=== PATIENT | female | born 1945 | race Caucasian/White ===

== ENCOUNTER → 2016-06-19 | Outpatient (CLI) | payer MEDICARE, MEDICAID | END | disposition home or self-care (01) | LOC: GMA 17:51 | PROVIDERS: ATTEND Nurse Practitioner Acute Care | DX: N30.00 Acute cystitis without hematuria (principal) ==

== ENCOUNTER 2016-09-23 08:36 | Observation (INO) | payer MEDICARE, MEDICAID ==
[2016-09-23] MEDS ORDERED: ASPIRIN TABLET 325 MG TAB PO ONE (08:47)
[2016-09-23] MEDS ORDERED: ALUMINUM & MAGNESIUM HYDROXIDE 30 ML UD PO ONE (08:47)
[2016-09-23] MEDS ORDERED: HYDROcodone 5MG/APAP 325MG 1 EA TAB PO ONE (08:47)
--- NOTE | 2016-09-23 09:15 | RAD ---
Study: Single Frontal View of the Chest. Indication:chest ppain shortness of breath Comparison: December 10, 2013. Impression: Cardiomegaly without failure. Thoracic aorta tortuous. Lungs clear. Degenerative changes of the shoulders. Osteopenia. If this is a new finding, DEXA scan recommended as well as evaluation for possible osteoporosis treatment. Electronically signed by: Edgar Up MD 09/23/2016 9:15 AM CDT
[2016-09-23] MEDS ORDERED: IPRATROPIUM/ALBUTEROL 3 ML VIAL NEB ONE (09:49)
--- NOTE | 2016-09-23 09:58 | ED.PDOC ---
History of Present Illness - General Chief Complaint: Respiratory Problem Stated Complaint: chest pain,shortness of breath Time Seen by Provider: 09/23/16 08:45 Source: patient Exam Limitations: no limitations - History of Present Illness Initial Comments: The patient is a 71-year-old female presenting to the emergency room secondary to chest pain and shortness of breath. She was brought in by EMS. Oxygen saturations were 88% on room air upon their arrival at her house. She was showing a markedly increased work of breathing with significant respiratory distress. Albuterol nebulizer treatment was started showing some improvement by her arrival here. She does not normally have oxygen at home. She does not have any history of sleep apnea. She apparently has a history of pulmonary fibrosis and a questionable history of a PE in the distant past. She has a history of a stroke in the past. She sees Dr. Ian Lo. the patient does have some significant dementia but does not live alone. She is reporting some chest pain with taking big deep breaths and with movement. Her left anterior and lateral chest wall are sore to palpation. No obvious trauma. no fevers. No productive sputum. No increased shortness of breath with lying back. Timing/Duration: 1 week Severity: severe Improving Factors: immobilization Worsening Factors: movement Associated Symptoms: chest pain, malaise, shortness of breath Allergies/Adverse Reactions: Allergies NO KNOWN ALLERGY Allergy (Verified 03/15/13 15:39) Home Medications: Ambulatory Orders Albuterol Sulfate 0.083 % IN QID #0 03/16/13 Albuterol Sulfate [Proair Hfa] 108 mcg IN Q4-6H #0 03/16/13 DULoxetine HCL [Cymbalta] 30 mg PO BID #0 03/16/13 Levothyroxine Sodium [Synthroid] 0.15 mg PO 0700 #0 03/16/13 Meloxicam 7.5 mg PO DAILY #0 03/16/13 metFORMIN HCL [Glucophage] 500 mg PO DAILY #0 03/16/13 Albuterol Sulfate [Proair Hfa] 2 puff INH Q6H PRN 09/23/16 Amlodipine Besylate 2.5 mg PO DAILY 09/23/16 Aspirin [Aminta Low Dose] 81 mg PO DAILY 09/23/16 Cyanocobalamin [Vitamin B-12] 500 mcg PO DAILY 09/23/16 Lisinopril 20 mg PO DAILY 09/23/16 Montelukast Sodium 10 mg PO DAILY 09/23/16 Review of Systems - Review of Systems Constitutional: States: malaise EENTM: States: no symptoms reported Respiratory: States: short of breath, wheezing Cardiology: States: chest pain Gastrointestinal/Abdominal: States: no symptoms reported Genitourinary: States: no symptoms reported Musculoskeletal: States: no symptoms reported Skin: States: no symptoms reported Neurological: States: other - chronic changes from her previous stroke including dementia. Endocrine: States: no symptoms reported All other Systems: No Change from Baseline Past Medical History (General) - Patient Medical History Hx Seizures: No Hx Stroke: No Hx Asthma: Yes Hx of COPD: Yes Hx Cardiac Disorders: No Hx Congestive Heart Failure: Yes Hx Pacemaker: No Hx Hypertension: Yes Hx Diabetes: Yes MRSA Source:: Blood Surgical History: cholecystectomy - Vaccination History Hx Influenza Vaccination: Yes Hx Pneumococcal Vaccination: Yes - Social History Hx Tobacco Use: No Hx Alcohol Use: No Hx Substance Use: No Hx Physical Abuse: No Hx Emotional Abuse: No - Female History Patient : No Family Medical History - Family History Mother Family History: Unknown Physical Exam - Physical Exam General Appearance: Alert, Anxious, Obvious distress Eye Exam: bilateral normal - chronic changes only Ears, Nose, Throat: hearing grossly normal, normal ENT inspection, normal pharynx - poor dentition Neck: non-tender, full range of motion, supple, normal inspection Respiratory: respiratory distress, decreased breath sounds - severely, accessory muscle use, wheezing Cardiovascular/Chest: normal peripheral pulses, no edema, tachycardia - sinus Peripheral Pulses: radial,right: 2+, radial,left: 2+, dorsalis pedis,right: 2+, dorsalis pedis,left: 2+ Gastrointestinal/Abdominal: non tender, soft Rectal Exam: deferred Back Exam: normal inspection, no CVA tenderness, no vertebral tenderness Extremity: normal range of motion, non-tender, no pedal edema, no calf tenderness, normal capillary refill Neurologic: alert, other - the patient knows she is at the hospital and why she is here. She recognizes her friends. She has a little bit off on the date. Her recall of her medical problems and medications is very poor Skin Exam: normal color Comments: Vital Signs - 24 hr 09/23/16 09/23/16 08:49 09:18 Temperature 98.7 F Pulse Rate [ 97 H 97 H Left Brachial] Respiratory 24 Rate Blood Pressure 137/76 [Left Arm] O2 Sat by Pulse 94 L Oximetry Progress - Progress Progress: 09/23/16 10:03 the patient is a 71-year-old female presenting to emergency room secondary to chest pain and significant shortness of breath. The patient is hypoxic at baseline upon EMS arrival. She is responding fairly well to the nebulizer treatments. She does appear to be having a COPD or pulmonary fibrosis flare. The patient was given IV Solu-Medrol along with IV azithromycin and Rocephin. Blood cultures have been performed. She has not yet been able to give a sputum culture. The patient presented with significant respiratory distress and she has responded well to treatments. Due to her multiple medical conditions and significant frailty, the patient will be admitted overnight to make sure that she improved rather than deteriorates further. She also does not have oxygen at home which she would need now if she were to go home. - Results/Orders Results/Orders: Laboratory Tests 09/23/16 09/23/16 09/23/16 09:00 09:00 09:00 WBC 7.7 RBC 4.59 Hgb 13.8 Hct 42.0 MCV 91.6 MCH 30.2 MCHC 32.9 L RDW 12.7 Plt Count 284 MPV 7.9 Absolute Neuts (auto) 4.40 Absolute Lymphs (auto) 2.50 Absolute Monos (auto) 0.50 Absolute Eos (auto) 0.40 Absolute Basos (auto) 0.10 Neutrophils % 56.4 Lymphocytes % 31.9 Monocytes % 6.3 Eosinophils % 4.6 Basophils % 0.8 PT 10.8 INR 0.960 PTT (SP) 27.2 D-Dimer, Quantitative < 230 Sodium 140 Potassium 3.8 Chloride 104 Carbon Dioxide 30 Anion Gap 9.8 L BUN 14 Creatinine 0.84 BUN/Creatinine Ratio 16.7 Random Glucose 159 H Serum Osmolality 283.2 Calcium 9.4 Total Bilirubin 0.5 AST 14 ALT 12 Alkaline Phosphatase 111 Creatine Kinase 27 CK-MB (CK-2) 0.8 CK-MB (CK-2) % Not Reportable Troponin I < 0.02 B-Natriuretic Peptide 13.3 Serum Total Protein 7.4 Albumin 4.0 Globulin 3.4 Albumin/Globulin Ratio 1.2 blood culture is been performed. Chest x-ray shows no obvious pneumonia but there are definite that changes consistent with her pulmonary fibrosis. No obvious fluid overload. EKG shows normal sinus rhythm. QT and [place] intervals are within normal limits. Nonspecific T-wave abnormalities in V2 V3 and V4. This EKG is consistent with previous EKG from 2013. Departure - Departure Clinical Impression: Acute bronchospasm, Pulmonary fibrosis Disposition: Admit Patient Referrals: Hugh Lo MD [Primary Care Provider] - 1-2 Weeks Home Medications: Ambulatory Orders Albuterol Sulfate 0.083 % IN QID #0 03/16/13 Albuterol Sulfate [Proair Hfa] 108 mcg IN Q4-6H #0 03/16/13 DULoxetine HCL [Cymbalta] 30 mg PO BID #0 03/16/13 Levothyroxine Sodium [Synthroid] 0.15 mg PO 0700 #0 03/16/13 Meloxicam 7.5 mg PO DAILY #0 03/16/13 metFORMIN HCL [Glucophage] 500 mg PO DAILY #0 03/16/13 Albuterol Sulfate [Proair Hfa] 2 puff INH Q6H PRN 09/23/16 Amlodipine Besylate 2.5 mg PO DAILY 09/23/16 Aspirin [Aminta Low Dose] 81 mg PO DAILY 09/23/16 Cyanocobalamin [Vitamin B-12] 500 mcg PO DAILY 09/23/16 Lisinopril 20 mg PO DAILY 09/23/16 Montelukast Sodium 10 mg PO DAILY 09/23/16 Decision To Admit - Decistion To Admit Decision to Admit Reason: Medical Nature Decision to Admit Date: 09/23/16 Decision to Admit Time: 10:05
[2016-09-23] MEDS ORDERED: methylPREDNISolone SODIUM SUC 40 MG/ML VIAL IV ONE (09:59)
[2016-09-23] MEDS ORDERED: cefTRIAXone SODIUM 1 GM in SODIUM CHL 0.9% 50ML MIN-BAG+ 50 ML IVPB ONE (09:59)
[2016-09-23] MEDS ORDERED: AZITHROMYCIN IV 500 MG in SODIUM CHLORIDE 0.9% 250ML 250 ML IVPB ONE (09:59)
[2016-09-23] MEDS ORDERED: SODIUM CHL 0.9% 50ML MIN-BAG+ 50 ML IVPB ONE (10:10)
[2016-09-23] MEDS ORDERED: cefTRIAXone SODIUM 1 GM VIAL ONE (10:10)
--- NOTE | 2016-09-23 10:27 | HP ---
SUPERVISING PHYSICIAN: Hugh Lo M.D. CHIEF COMPLAINT: Chest pains with shortness of breath. HISTORY OF PRESENT ILLNESS: Ms. Edwards is a 71 year-old female patient that presented to the Emergency Room after she started experiencing chest pains and shortness of breath. She notes that she has been having the chest pains on and off for the last several days. She was brought in by the EMS. Initially on admission, oxygen saturations were noted to be 80% on room air at her house, according to paramedics. She was at that point showing increased work of breathing with some mild respiratory distress. She was then given albuterol nebulizer treatment and showed improvement once she arrive to the E. R. She does normally wear oxygen at home. She has a longstanding history of pulmonary fibrosis with a past history of deep venous thrombus with a questionable PE in the past. She noted that she had been having chest pains that occurred with deep breaths and movement noted to be on the left anterolateral chest wall and obviously sore on palpation. She denied any sputum and no increased shortness of breath when she was supine. In the Emergency Department, vital signs showed she was satting 92% on room air after breathing treatments with a temperature of 98.7, pulse 97. Laboratory studies showed a normal CBC. Coagulation studies showed to be within normal limits. Chemistries showed elevated glucose at 159, otherwise within normal limits. Chest x-ray was also performed and per radiology interpretation showed no obvious infiltrative process but consistent changes with pulmonary fibrosis, but no obvious fluid overload. EKG also showed a sinus rhythm with nonspecific T wave abnormalities noted to be in V2, V3 and V4 which was unchanged from previous EKG compared in 2014. Given the fact that Ms. Edwards had been experiencing chest pains and ongoing increasing shortness of breath with mild respiratory distress with sats in the low 80s on room air, the patient will now be placed in observation to monitor on telemetry and to further rule out any acute myocardial infarction, and aggressive pulmonary hygiene with Solu-Medrol and antibiotic initiation with some concerns of early pneumonia community acquired given the patient's significant pulmonary fibrosis. The patient was placed in Observation in stable condition. PAST MEDICAL HISTORY: 1. History of deep venous thrombosis. 2. Asthma. 3. Pulmonary fibrosis. 4. Osteoarthritis. 5. Spinal stenosis. 6. Degenerative disc disease of the cervical spine. 7. Depression and anxiety. 8. Type 2 diabetes mellitus. 9. Cerebrovascular accidents. 10. Hypothyroidism. 11. Hypertriglyceridemia. 12. Hypertension. PAST SURGICAL HISTORY: 1. Laparoscopic cholecystectomy in October 2011. 2. Hysterectomy and bilateral salpingo-oophorectomy with bladder biopsy by Dr. Grady in 2005. 3. Tonsillectomy. 4. Eye surgery for strabismus. HOME MEDICATIONS: 1. Hydrocodone 10/325 one tablet every 4 hours as needed for pain. 2. Xanax 1 mg twice daily. 3. Glucophage 500 mg daily. 4. Singulair 10 mg daily. 5. Meloxicam 7.5 mg daily. 6. Lisinopril 20 mg daily. 7. Synthroid 0.15 mg daily. 8. Cymbalta 30 mg twice daily. 9. Vitamin B12 supplement 500 mcg daily. 10. Low dose aspirin 81 mg daily. 11. Amlodipine 2.5 mg daily. 12. Albuterol inhaler as needed every 4 hours. 13. Albuterol sulfate nebulizer solution 0.083% inhaled q.i.d. ALLERGIES: NO KNOWN DRUG ALLERGIES. FAMILY HISTORY: Father from problems with coronary artery disease. He also had chronic obstructive pulmonary disease. Mother had type 2 diabetes. She has 1 sister with breast cancer and multiple family members with diabetes mellitus. SOCIAL HISTORY: The patient is retired and disabled. She currently lives with her sister. She is not . She has worked in a assisted previously. She denies ever smoking but does note that her was a chronic smoker. She denies any history of alcohol or illicit drug use. REVIEW OF SYSTEMS: CONSTITUTIONAL: General malaise but denies any fever or chills, weight gain or weight loss. HEENT: No visual disturbances, headaches, neck pain or stiffness. RESPIRATORY: As noted in the history of present illness, shortness of breath, nonproductive cough and some notable wheezing. CARDIOVASCULAR: As noted in the history of present illness, chest pain that is reproducible with deep inspiration and palpation of the chest wall. GASTROINTESTINAL: Denies any nausea, vomiting, diarrhea or constipation. GENITOURINARY: No dysuria, hematuria or polyuria. MUSCULOSKELETAL: Does have chronic left shoulder pain. NEUROLOGIC: Chronic changes from previous stroke to include worsening dementia. PHYSICAL EXAMINATION: VITAL SIGNS: Temperature 98.7, pulse 97, blood pressure 137/76, respirations 24 , initially satting 92% on room air, after breathing treatment on admission to the Medical/Surgical floor she was satting 98% on nasal cannula at rest. Heart rate was 70. Weight was 83.9 kg. HEENT: Tympanic membranes are clear bilaterally. Oropharynx is pink and moist without any lesions. Very poor dentition with notable strabismus. NECK: Supple without any pain. Normal range of motion. No jugular venous distention. CHEST: Mild respiratory distress with some accessory muscle use as noted with just very faint wheezing on admission to the Medical/Surgical floor with significant decreased breath sounds. CARDIOVASCULAR: Regular rate and rhythm. No appreciable murmurs, gallops, or rubs. ABDOMEN: Soft, non-tender. Positive bowel sounds and obese. EXTREMITIES: No clubbing, cyanosis or edema. NEUROLOGIC: She is alert and oriented with no focal deficit noted. LABORATORY: CBC on admission showed white count 7.7, the rest of the CBC was within normal limits. Coagulation studies showed normal PT, PTT and D-dimer. Chemistries showed normal electrolytes with potassium 3.8, BUN 14, creatinine 0.84, glucose 59. Liver functions showed to be within normal limits. She had 2 sets of cardiac enzymes prior to admission to the floor with both being less than 0.02 for troponin and CK and CK-MB were both within normal limits. TSH was slightly decreased to 0.26. Urinalysis showed 100 glucose with small amount of blood. Otherwise within normal limits. RADIOLOGY: Chest x-ray single view per radiology interpretation showed cardiomegaly without failure. Lungs appeared to be clear. ASSESSMENT: 1. Chest pain with need to rule out acute myocardial infarction with the patient notably having symptoms exacerbated by palpitation of the chest wall and deep inspiratory effort. 2. History of chronic obstructive pulmonary disease with advanced pulmonary fibrosis with an acute exacerbation with bronchospasms with concerns for early development of pneumonia, although the patient has a normal CBC. 3. Hypertension. 4. Hypothyroidism with a low TSH on supplementation needing outpatient management. 5. History of cerebrovascular accidents. 6. Type 2 diabetes mellitus on insulin and oral therapy. 7. Degenerative disc disease of the cervical spine with chronic pain. 8. History of deep venous thrombosis with remote history of possible PE. 9. Depression and anxiety. PLAN: The patient will be placed in Observation tonight for telemetry and close monitoring of serial cardiac enzymes to further rule out a possible acute myocardial infarction. She was started on Solu-Medrol in the Emergency Department. This will be continued with 30 mg every 6 hours times 3 doses low dose considering that the patient is diabetic. If she certainly fails to show clinical improvement, we will certainly increase this as needed. She will be provided with aggressive pulmonary hygiene including DuoNeb treatments q.i.d. and p.r.n. along with initiation of parenteral antibiotics to include Azithromycin and Rocephin with the patient being at risk with pneumonia community acquired given that she has advanced pulmonary fibrosis. Will plan to restart her medications once they have been updated and verified. Will start her on insulin sliding scale per protocol. She will be started on DVT prophylaxis as per protocol. Will start her on Protonix for gastric protection with the patient starting on corticosteroids. Will anticipate length of stay to be 1 to 2 days, possibly discharge tomorrow with repeat studies to include CBC, BMP and a repeat chest x-ray. She did have blood cultures drawn prior to initiation of antibiotics. Will try to collect a sputum if possible. Until discharge, will continue to monitor on telemetry with again repeat cardiac enzymes in the morning along with an EKG. Until then, treat appropriately and monitor closely. #[id number] [facility]
[2016-09-23] MEDS ORDERED: AZITHROMYCIN IV 500 MG VIAL IVPB ONE (10:35)
[2016-09-23] MEDS ORDERED: SODIUM CHLORIDE 0.9% 250ML 250 ML ONE (10:35)
[2016-09-23] MEDS ORDERED: MORPHINE SULFATE INJ 10 MG/ML VIAL IV PRN (10:52)
[2016-09-23] MEDS ORDERED: ASPIRIN (CHEWABLE) 81 MG TAB PO ONE (10:52)
[2016-09-23] MEDS ORDERED: NITROGLYCERIN 0.4 MG 25 EA TAB SL PRN (10:52)
[2016-09-23] MEDS ORDERED: IV SET AND CAP CHANGE INJ INJ SCH (11:00)
[2016-09-23] MEDS ORDERED: ALBUTEROL SULFATE 2.5 MG/3 ML VIAL NEB PRN (11:03)
[2016-09-23] MEDS ORDERED: ACETAMINOPHEN 325 MG TAB PO PRN (11:03)
[2016-09-23] MEDS ORDERED: GLUCAGON INJ 1 MG VIAL SUBCU PRN (11:03)
[2016-09-23] MEDS ORDERED: DEXTROSE 50% 25 GM/50 ML SYG IV PRN (11:03)
[2016-09-23] MEDS ORDERED: ONDANSETRON INJ 4 MG/2 ML VIAL IV PRN (11:03)
[2016-09-23] MEDS ORDERED: HYDROcodone 5MG/APAP 325MG 1 EA TAB PO PRN (11:03)
[2016-09-23] MEDS: INSULIN LISPRO 100 UNITS/ML PEN SUBCU SCH ×3 (11:30→21:41)
[2016-09-23] MEDS ORDERED: metFORMIN HCL 500 MG TAB PO SCH (16:30)
[2016-09-23] MEDS ORDERED: NON-FORMULARY MEDICATION 1 EA MIS (Lisinopril [Lisinopril] 20 MG) PO SCH (16:30)
[2016-09-23] MEDS ORDERED: LISINOPRIL 10 MG TAB ONE (17:14)
[2016-09-23] MEDS: ASPIRIN EC 81 MG TAB PO SCH (17:15)
[2016-09-23] MEDS: amLODIPine BESYLATE 5 MG TAB PO SCH (17:15)
[2016-09-23] MEDS: MELOXICAM 7.5 MG TAB PO SCH (17:17)
[2016-09-23] MEDS: methylPREDNISolone SODIUM SUC 40 MG/ML VIAL IV SCH ×2 (17:18→21:40)
[2016-09-23] MEDS: MONTELUKAST 10 MG TAB PO SCH (17:28)
[2016-09-23] MEDS: IPRATROPIUM/ALBUTEROL 3 ML VIAL INH SCH ×3 (17:30→20:38)
[2016-09-23] MEDS ORDERED: LISINOPRIL 10 MG TAB PO ONE (17:30)
--- NOTE | 2016-09-23 19:16 | PCM.CORE ---
Physician DVT/VTE - Nurse DVT Assessment & Total Each Risk Factor Represents 2 Points: Age 60-74 Each Risk Factor is 1 Point: Obesity (BMI >25), Serious Lung disease (pnemonia < 1month, COPD, emphysema,etc) DVT Assessment Score: 4 - 5 or more Very High Risk Treatments: Early Ambulation *, Sequential Compression Device Pharmacological: Enoxaparin 40mg SQ Daily
[2016-09-23] MEDS: HYDROcodone 10MG/APAP 325MG 1 EA TAB PO PRN (19:38)
[2016-09-23] MEDS ORDERED: ALPRAZolam 0.5 MG TAB ONE (20:04)
[2016-09-23] MEDS: DULoxetine HCL 30 MG CAP PO SCH (20:42)
[2016-09-23] MEDS ORDERED: NON-FORMULARY MEDICATION 1 EA MIS (Alprazolam [Xanax] 1 MG) PO SCH (21:00)
[2016-09-23] MEDS ORDERED: ENOXAPARIN SODIUM 40 MG/0.4 ML SYG SUBCU SCH (21:00)
[2016-09-23] MEDS: SODIUM CHLORIDE 0.9% (FLUSH) 10 ML SYG IV SCH (21:41)
[2016-09-24] MEDS: SODIUM CHLORIDE 0.9% (FLUSH) 10 ML SYG IV PRN ×3 (01:41→06:07)
[2016-09-24] MEDS: methylPREDNISolone SODIUM SUC 40 MG/ML VIAL IV SCH (03:07)
[2016-09-24] MEDS ORDERED: LEVOTHYROXINE SODIUM 0.075 MG TAB ONE (05:09)
[2016-09-24] MEDS ORDERED: PANTOPRAZOLE SODIUM IV 40 MG VIAL ONE (05:09)
[2016-09-24] MEDS ORDERED: PANTOPRAZOLE SODIUM IV 40 MG VIAL IV SCH (06:30)
--- NOTE | 2016-09-24 06:41 | RAD ---
Clinical History : Pneumonia , MAIN Exam : PA and lateral views of the chest 09/24/2016 7:00 AM CDT Comparisons : Portable AP view of the chest September 23, 2016 Findings : The lungs are clear without focal consolidation or pleural effusion. The heart is normal in size. The mediastinal contours are normal in appearance. There are vascular calcifications along the aortic arch. The patient is osteopenic which limits evaluation of the thoracic spine. The ribs and shoulders are grossly normal. Limited evaluation of the upper abdomen demonstrates no gross abnormalities. Impression: No acute cardiopulmonary disease Electronically signed by: Evan Villafuerte MD 09/24/2016 6:41 AM CDT
[2016-09-24] MEDS ORDERED: LEVOTHYROXINE SODIUM PO SCH (07:00)
[2016-09-24] MEDS ORDERED: LISINOPRIL 10 MG TAB ONE (07:26)
[2016-09-24] MEDS ORDERED: CYANOCOBALAMIN 1,000 MCG TAB ONE (07:26)
[2016-09-24] MEDS ORDERED: SODIUM CHLORIDE 0.9% 250ML 250 ML ONE (07:26)
[2016-09-24] MEDS ORDERED: SODIUM CHL 0.9% 50ML MIN-BAG+ 50 ML IVPB ONE (07:27)
[2016-09-24] MEDS ORDERED: ASPIRIN TABLET 325 MG TAB ONE (07:27)
[2016-09-24] MEDS ORDERED: cefTRIAXone SODIUM 1 GM VIAL ONE (07:27)
[2016-09-24] MEDS ORDERED: AZITHROMYCIN IV 500 MG VIAL IVPB ONE (07:28)
[2016-09-24] MEDS ORDERED: ALPRAZolam 0.5 MG TAB ONE (07:28)
[2016-09-24] MEDS: INSULIN LISPRO 100 UNITS/ML PEN SUBCU SCH ×3 (07:32→16:33)
[2016-09-24] MEDS: MONTELUKAST 10 MG TAB PO SCH (08:38)
[2016-09-24] MEDS: amLODIPine BESYLATE 5 MG TAB PO SCH (08:38)
[2016-09-24] MEDS: SODIUM CHLORIDE 0.9% (FLUSH) 10 ML SYG IV SCH (08:39)
[2016-09-24] MEDS: MELOXICAM 7.5 MG TAB PO SCH (08:39)
[2016-09-24] MEDS: DULoxetine HCL 30 MG CAP PO SCH (08:39)
[2016-09-24] MEDS ORDERED: LISINOPRIL 10 MG TAB PO SCH (09:00)
[2016-09-24] MEDS ORDERED: metFORMIN HCL 500 MG TAB PO SCH (09:00)
[2016-09-24] MEDS ORDERED: CYANOCOBALAMIN 1,000 MCG TAB PO SCH (09:00)
[2016-09-24] MEDS ORDERED: ASPIRIN TABLET 325 MG TAB PO SCH (09:00)
[2016-09-24] MEDS ORDERED: ALPRAZolam 0.5 MG TAB PO SCH (09:00)
[2016-09-24] MEDS: ASPIRIN EC 81 MG TAB PO SCH (09:13)
[2016-09-24] MEDS: IPRATROPIUM/ALBUTEROL 3 ML VIAL INH SCH ×3 (09:17→16:37)
[2016-09-24] MEDS ORDERED: AZITHROMYCIN IV 500 MG in SODIUM CHLORIDE 0.9% 250ML 250 ML IVPB SCH (10:00)
[2016-09-24] MEDS ORDERED: cefTRIAXone SODIUM 1 GM in SODIUM CHL 0.9% 50ML MIN-BAG+ 50 ML IVPB SCH (12:00)
[2016-09-24] MEDS: HYDROcodone 10MG/APAP 325MG 1 EA TAB PO PRN (13:12)
[2016-09-24 17:57] VITALS: BP 131/71; TEMP 97.7; O2SAT 100
[2016-09-25] MEDS ORDERED: LEVOTHYROXINE SODIUM 0.075 MG TAB PO SCH (06:30)
== END 2016-09-24 19:03 | disposition home or self-care (01) ==
LOC: ER 08:36 → MS 10:26
PROVIDERS: ADMIT Nurse Practitioner Family; ATTEND Nurse Practitioner Acute Care
DX: R07.89 Other chest pain (principal); J44.1 Chronic obstructive pulmonary disease with (acute) exacerbation; J84.10 Pulmonary fibrosis, unspecified; J18.9 Pneumonia, unspecified organism; R09.02 Hypoxemia; R06.02 Shortness of breath; I10 Essential (primary) hypertension; E03.9 Hypothyroidism, unspecified; E11.9 Type 2 diabetes mellitus without complications; M50.30 Other cervical disc degeneration, unspecified cervical region; G89.29 Other chronic pain; F32.9 Major depressive disorder, single episode, unspecified; F41.9 Anxiety disorder, unspecified; J45.909 Unspecified asthma, uncomplicated; M19.90 Unspecified osteoarthritis, unspecified site; E78.1 Pure hyperglyceridemia; M85.89 Other specified disorders of bone density and structure, multiple sites; I51.7 Cardiomegaly; Z99.81 Dependence on supplemental oxygen; Z79.1 Long term (current) use of non-steroidal anti-inflammatories (NSAID); Z79.84 Long term (current) use of oral hypoglycemic drugs; Z79.82 Long term (current) use of aspirin; Z79.899 Other long term (current) drug therapy; Z86.73 Personal history of transient ischemic attack (TIA), and cerebral infarction without residual deficits; Z86.718 Personal history of other venous thrombosis and embolism; Z90.49 Acquired absence of other specified parts of digestive tract; Z90.710 Acquired absence of both cervix and uterus; Z82.49 Family history of ischemic heart disease and other diseases of the circulatory system; Z82.5 Family history of asthma and other chronic lower respiratory diseases; Z83.3 Family history of diabetes mellitus; Z80.3 Family history of malignant neoplasm of breast
CPT/HCPCS: 36415 ×5; 36416 ×3; 71010; 71020; 80048; 80053; 80061; 81001; 82550 ×3; 82553 ×3; 82948 ×6; 83880; 84443; 84484 ×3; 85025 ×2; 85379; 85610; 85730; 87040 ×2; 93005; 94640 ×5; 94760 ×4; 96365; 96366; 96367; 96372 ×2; 96375 ×2; 96376 ×2; 99284; G0378; J0456 ×2; J0696 ×2; J1030 ×4; J1650; J1815; J2270; J7050 ×4; J7620 ×5

== ENCOUNTER → 2016-11-26 | Outpatient (CLI) | payer MEDICARE, MEDICAID | END | disposition home or self-care (01) | LOC: GMAM 12:04 | PROVIDERS: ATTEND Family Medicine | DX: E03.9 Hypothyroidism, unspecified (principal) ==

== ENCOUNTER → 2017-03-13 | Outpatient (CLI) | payer MEDICARE, MEDICAID | END | disposition home or self-care (01) | LOC: GMAM 10:27 | PROVIDERS: ATTEND Family Medicine | DX: E03.9 Hypothyroidism, unspecified (principal) ==

== ENCOUNTER → 2017-06-24 | Outpatient (CLI) | payer MEDICARE, MEDICAID | LOC: GMAM 11:40 | PROVIDERS: ATTEND Family Medicine | DX: E03.9 Hypothyroidism, unspecified (principal) ==

== ENCOUNTER 2017-07-31 11:05 | Emergency (ER) | payer MEDICARE, MEDICAID ==
--- NOTE | 2017-07-31 11:27 | ED.PDOC ---
History of Present Illness - General Chief Complaint: Respiratory Problem Stated Complaint: cough/wheezing Time Seen by Provider: 07/31/17 11:24 Source: patient Exam Limitations: no limitations - History of Present Illness Comments: Juan Pablo Edwards 72 y/o female with long standing history of asthma came to ER with cough and worsening wheezing for one week.No fever ,no chills,no hemoptysis with thick white phlegm. Timing/Duration: other - see hpi Cough Quality/Degree: productive cough Possible Cause: occasional episodes Improving Factors: nothing Worsening Factors: other - allergies Associated Symptoms: other - see hpi Respiratory Risk Factors: exposure to allergen Allergies/Adverse Reactions: Allergies NO KNOWN ALLERGY Allergy (Verified 07/31/17 11:35) Home Medications: Ambulatory Orders Albuterol Sulfate 0.083 % IN QID #0 03/16/13 Albuterol Sulfate [Proair Hfa] 108 mcg IN Q4-6H #0 03/16/13 DULoxetine HCL [Cymbalta] 30 mg PO BID #0 03/16/13 Meloxicam 7.5 mg PO DAILY #0 03/16/13 metFORMIN HCL [Glucophage] 500 mg PO DAILY #0 03/16/13 Alprazolam [Xanax] 1 mg PO BID 09/23/16 Amlodipine Besylate 2.5 mg PO DAILY 09/23/16 Aspirin [Aminta Low Dose] 81 mg PO DAILY 09/23/16 Cyanocobalamin [Vitamin B-12] 500 mcg PO DAILY 09/23/16 HYDROcodone 10MG/APAP 325MG [[place] 10/325] 1 tab PO Q4HR PRN 09/23/16 Lisinopril 20 mg PO DAILY 09/23/16 Montelukast Sodium 10 mg PO DAILY 09/23/16 Amoxicillin [Amoxil] 1,000 mg PO BID #30 cap 07/31/17 predniSONE 20 mg PO DAILY #7 tab 07/31/17 Review of Systems - Review of Systems Constitutional: States: no symptoms reported EENTM: States: no symptoms reported Respiratory: States: see HPI Cardiology: States: no symptoms reported Gastrointestinal/Abdominal: States: no symptoms reported Genitourinary: States: no symptoms reported All other Systems: Reviewed and Negative, No Change from Baseline Past Medical History (General) - Patient Medical History Hx Seizures: No Hx Stroke: No Hx Asthma: Yes Hx of COPD: Yes Hx Cardiac Disorders: No Hx Congestive Heart Failure: Yes Hx Pacemaker: No Hx Hypertension: Yes Hx Diabetes: Yes Hx MRSA: No MRSA Source:: Blood Surgical History: cholecystectomy, tonsillectomy, other - cataract,hysterectomy - Vaccination History Hx Influenza Vaccination: Yes Hx Pneumococcal Vaccination: Yes - Social History Hx Tobacco Use: No Hx Alcohol Use: No Hx Substance Use: No Hx Physical Abuse: No Hx Emotional Abuse: No - Activities of Daily Living Patient Lives Alone: No Grooming Ability: Independent Eating (Feeding) Ability: Independent Toileting Ability: Independent - Female History Patient : No Family Medical History - Family History Mother Family History: Unknown Hx Cardiac Disease: Yes - parents,sister Hx Family Diabetes: Yes - mom ,sister Hx Family Cancer: Yes - breast-sister Physical Exam - Physical Exam General Appearance: Alert, Comfortable, Frail Eye Exam: bilateral normal ENT Exam: hearing grossly normal Respiratory: chest non-tender, no respiratory distress, wheezing Cardiovascular/Chest: normal peripheral pulses, regular rate, rhythm, no murmur Gastrointestinal/Abdominal: non tender, soft, no organomegaly Extremity: no calf tenderness Neurologic: alert, oriented x 3 Skin Exam: normal color, warm/dry Progress - Progress Progress: 07/31/17 12:26 Vital Signs - 8 hr 07/31/17 11:19 Temperature 98.8 F Pulse Rate [ 92 H Left Radial] Respiratory 28 H Rate Blood Pressure 164/85 [Left Arm] O2 Sat by Pulse 94 L Oximetry - Results/Orders Results/Orders: Abnormal Lab Results 07/31/17 07/31/17 11:45 11:45 MCH 31.1 H MPV 7.3 L Anion Gap 10.5 L Random Glucose 129 H 07/31/17 13:04 Ipratropium/Albuterol [Duoneb] 3 ml NEB ONCE ONE SVN/Updraft Therapy .ONCE SVN/Updraft Therapy .PRN 08/01/17 09:00 [facility] Daily Laboratory Results - last 24 hr 07/31/17 07/31/17 11:45 11:45 WBC 8.9 RBC 4.46 Hgb 13.9 Hct 41.2 MCV 92.4 MCH 31.1 H MCHC 33.7 RDW 13.3 Plt Count 329 MPV 7.3 L Absolute Neuts (auto) 5.50 Absolute Lymphs (auto) 2.30 Absolute Monos (auto) 0.70 Absolute Eos (auto) 0.30 Absolute Basos (auto) 0.10 Neutrophils % 62.1 Lymphocytes % 25.6 Monocytes % 7.4 Eosinophils % 3.9 Basophils % 1.0 Sodium 139 Potassium 4.5 Chloride 105 Carbon Dioxide 28 Anion Gap 10.5 L BUN 12 Creatinine 0.68 BUN/Creatinine Ratio 17.6 Random Glucose 129 H Serum Osmolality 279.0 Calcium 9.2 - EKG/XRAY/CT XRAY: chest - no acute abnormality Departure - Departure Clinical Impression: Asthmatic bronchitis with exacerbation Qualifiers: Asthma severity: unspecified severity Qualified Code(s): J45.901 - Unspecified asthma with (acute) exacerbation Time of Disposition: 13:06 Disposition: Discharge to Home or Self Care Condition: Fair Departure Forms: ED Discharge - Pt. Copy, Patient Portal Self Enrollment Instructions: DI for Asthma -- Adult Referrals: Hugh Lo MD [Primary Care Provider] - 1-2 Weeks Prescriptions: Amoxicillin [Amoxil] 1,000 mg PO BID #30 cap predniSONE 20 mg PO DAILY #7 tab Home Medications: Ambulatory Orders Albuterol Sulfate 0.083 % IN QID #0 03/16/13 Albuterol Sulfate [Proair Hfa] 108 mcg IN Q4-6H #0 03/16/13 DULoxetine HCL [Cymbalta] 30 mg PO BID #0 03/16/13 Meloxicam 7.5 mg PO DAILY #0 03/16/13 metFORMIN HCL [Glucophage] 500 mg PO DAILY #0 03/16/13 Alprazolam [Xanax] 1 mg PO BID 09/23/16 Amlodipine Besylate 2.5 mg PO DAILY 09/23/16 Aspirin [Aminta Low Dose] 81 mg PO DAILY 09/23/16 Cyanocobalamin [Vitamin B-12] 500 mcg PO DAILY 09/23/16 HYDROcodone 10MG/APAP 325MG [[place] 10325] 1 tab PO Q4HR PRN 09/23/16 Lisinopril 20 mg PO DAILY 09/23/16 Montelukast Sodium 10 mg PO DAILY 09/23/16 Amoxicillin [Amoxil] 1,000 mg PO BID #30 cap 07/31/17 predniSONE 20 mg PO DAILY #7 tab 07/31/17 Additional Instructions: Continue with Albuterol MDI-2 puffs every 4-6 hours as needed for wheezing and the rest of medications ;Follow up with primary Md 03 August 2017 as needed
[2017-07-31] MEDS ORDERED: methylPREDNISolone SODIUM SUC 125 MG/2 ML VIAL IV ONE (11:31)
--- NOTE | 2017-07-31 11:47 | RAD ---
EXAM DESCRIPTION: Chest,1 View CLINICAL HISTORY: 72 years Female, wheezing COMPARISON: Sep 24 2016 TECHNIQUE: AP portable chest. FINDINGS: Fair expansion of the lungs is evident without consolidation, layering effusion, or large mass. Heart size and vascularity appear normal for AP technique and degree of inspiration. No gross bony, hilar, or mediastinal abnormalities are noted. IMPRESSION: Normal chest, one view Electronically signed by: Hugh Kaur MD 07/31/2017 11:47 AM CDT
[2017-07-31] MEDS ORDERED: IPRATROPIUM/ALBUTEROL 3 ML VIAL NEB ONE ×2 (12:28→13:04)
[2017-07-31 13:55] VITALS: BP 157/79; TEMP 98; O2SAT 100
== END 2017-07-31 13:56 | disposition home or self-care (01) ==
LOC: ER 11:05
DX: J45.901 Unspecified asthma with (acute) exacerbation (principal); J44.9 Chronic obstructive pulmonary disease, unspecified; I11.0 Hypertensive heart disease with heart failure; I50.9 Heart failure, unspecified; E11.9 Type 2 diabetes mellitus without complications; Z79.82 Long term (current) use of aspirin
CPT/HCPCS: 36416; 71045; 80048; 85025; 94640; J2930; J7620

== ENCOUNTER 2017-08-16 14:20 | Emergency (ER) | payer MEDICARE, MEDICAID ==
[2017-08-16] MEDS ORDERED: IPRATROPIUM/ALBUTEROL 3 ML VIAL NEB ONE ×3 (14:38→15:37)
--- NOTE | 2017-08-16 14:47 | RAD ---
EXAM DESCRIPTION: Chest,1 View CLINICAL HISTORY: cough, congestion, shortness of breath COMPARISON: July 31, 2017 FINDINGS: Cardiac silhouette is within normal limits. Aorta is tortuous. There is no focal parenchymal or pleural disease. Degenerative changes at both shoulders. Apices are partially obscured by superimposed soft tissues. IMPRESSION: No evidence of acute cardiopulmonary disease. Electronically signed by: Ryley Okeefe MD 08/16/2017 2:45 PM CDT
--- NOTE | 2017-08-16 15:02 | ED.PDOC ---
History of Present Illness - General Chief Complaint: Respiratory Problem Stated Complaint: Shortness of breath Time Seen by Provider: 08/16/17 14:51 Source: patient, Vital Signs reviewed Exam Limitations: no limitations - History of Present Illness Initial Comments: Juan Pablo Edwards 72 y/o female came to er with cough,sob,wheezing since yesterday.Stated has history of asthma and was recently seen here 2 weeks ago.Use inhalers for her asthma at home Timing/Duration: 24 hours Severity: moderate Improving Factors: nothing Worsening Factors: nothing Associated Symptoms: shortness of breath Allergies/Adverse Reactions: Allergies NO KNOWN ALLERGY Allergy (Verified 07/31/17 11:35) Home Medications: Ambulatory Orders Albuterol Sulfate 0.083 % IN QID #0 03/16/13 Albuterol Sulfate [Proair Hfa] 108 mcg IN Q4-6H #0 03/16/13 DULoxetine HCL [Cymbalta] 30 mg PO BID #0 03/16/13 Meloxicam 7.5 mg PO DAILY #0 03/16/13 metFORMIN HCL [Glucophage] 500 mg PO DAILY #0 03/16/13 Alprazolam [Xanax] 1 mg PO BID 09/23/16 Amlodipine Besylate 2.5 mg PO DAILY 09/23/16 Aspirin [Aminta Low Dose] 81 mg PO DAILY 09/23/16 Cyanocobalamin [Vitamin B-12] 500 mcg PO DAILY 09/23/16 HYDROcodone 10MG/APAP 325MG [[place] 10/325] 1 tab PO Q4HR PRN 09/23/16 Lisinopril 20 mg PO DAILY 09/23/16 Montelukast Sodium 10 mg PO DAILY 09/23/16 Amoxicillin [Amoxil] 1,000 mg PO BID #30 cap 07/31/17 predniSONE 20 mg PO DAILY #7 tab 07/31/17 Budesonide (Inhalation) [Pulmicort] 1 mg IN BID #120 ml 08/16/17 Cefuroxime Axetil [Ceftin] 500 mg PO Q12H #10 tablet 08/16/17 Ipratropium-Albuterol [Combivent Respimat 20-100 Mcg/Act] 2 puff IN Q6HRS #1 aer 08/16/17 Review of Systems - Review of Systems Constitutional: States: no symptoms reported EENTM: States: no symptoms reported Respiratory: States: see HPI Cardiology: States: no symptoms reported Gastrointestinal/Abdominal: States: no symptoms reported Genitourinary: States: no symptoms reported Musculoskeletal: States: no symptoms reported Skin: States: no symptoms reported Neurological: States: no symptoms reported All other Systems: Reviewed and Negative, No Change from Baseline Past Medical History (General) - Patient Medical History Hx Seizures: No Hx Stroke: No Hx Asthma: Yes Hx of COPD: Yes Hx Cardiac Disorders: No Hx Congestive Heart Failure: Yes Hx Pacemaker: No Hx Hypertension: Yes Hx Thyroid Disease: Yes - Is not taking her thyroid medication Hx Diabetes: Yes Hx MRSA: No MRSA Source:: Blood Surgical History: cholecystectomy, tonsillectomy, other - cataract,hysterectomy - Vaccination History Hx Influenza Vaccination: Yes Hx Pneumococcal Vaccination: Yes - Social History Hx Tobacco Use: No Hx Alcohol Use: No Hx Substance Use: No Hx Physical Abuse: No Hx Emotional Abuse: No - Activities of Daily Living Grooming Ability: Independent Eating (Feeding) Ability: Independent Toileting Ability: Independent - Female History Patient : No Family Medical History - Family History Mother Family History: Unknown Living Status: Hx Cardiac Disease: Yes - parents,sister Hx Family Diabetes: Yes - mom ,sister Hx Family Cancer: Yes - breast-sister Physical Exam - Physical Exam General Appearance: Alert, Comfortable, No apparent distress Eye Exam: bilateral normal Ears, Nose, Throat: hearing grossly normal, normal ENT inspection, normal pharynx Neck: non-tender, full range of motion, supple, normal inspection Respiratory: decreased breath sounds, wheezing Cardiovascular/Chest: regular rate, rhythm, no gallop, tachycardia Peripheral Pulses: radial,right: 2+, radial,left: 2+ Gastrointestinal/Abdominal: normal bowel sounds, non tender, soft, no organomegaly Extremity: non-tender, normal inspection, no calf tenderness Neurologic: alert, oriented x 3 Skin Exam: normal color, warm/dry Lymphatic: no adenopathy Progress - Progress Progress: 08/16/17 16:49 Vital Signs - 24 hr 08/16/17 08/16/17 08/16/17 14:27 14:49 16:29 Temperature 98.6 F Pulse Rate 127 H 114 H Pulse Rate [ 128 H Left Radial] Respiratory 32 H 20 20 Rate Blood Pressure 80/45 [Left Arm] O2 Sat by Pulse 92 L 94 L 96 Oximetry 08/16/17 16:50 BP -150/55;Sao2 95 %;HR 107 - Results/Orders Results/Orders: 08/16/17 15:03 IV Care:Saline Lock per Protoc QSHIFT 08/16/17 15:05 URINALYSIS Stat 08/17/17 09:[facility] Laboratory Results - last 24 hr 08/16/17 08/16/17 15:32 15:32 WBC 14.4 H RBC 4.55 Hgb 14.2 Hct 42.8 MCV 94.1 MCH 31.2 H MCHC 33.1 RDW 13.8 Plt Count 285 MPV 7.4 Absolute Neuts (auto) 12.80 H Absolute Lymphs (auto) 0.80 L Absolute Monos (auto) 0.60 Absolute Eos (auto) 0.10 Absolute Basos (auto) 0.10 Neutrophils % 88.9 H Lymphocytes % 5.7 L Monocytes % 4.3 Eosinophils % 0.6 L Basophils % 0.5 PT 11.1 INR 0.960 PTT (SP) 27.4 D-Dimer, Quantitative < 230 Sodium 141 Potassium 4.2 Chloride 107 Carbon Dioxide 28 Anion Gap 10.2 L BUN 13 Creatinine 0.70 BUN/Creatinine Ratio 18.6 Random Glucose 179 H Serum Osmolality 285.8 Calcium 8.9 Magnesium 1.9 Total Bilirubin 0.7 Direct Bilirubin < 0.1 Indirect Bilirubin 0.6 AST 19 ALT 23 Alkaline Phosphatase 65 Creatine Kinase 35 CK-MB (CK-2) 1.5 CK-MB (CK-2) % Not Reportable Troponin I < 0.02 B-Natriuretic Peptide 32.4 Serum Total Protein 7.2 Albumin 4.2 - EKG/XRAY/CT XRAY: chest - no acute abnormalities noted Departure - Departure Clinical Impression: Asthma exacerbation with COPD (chronic obstructive pulmonary disease) Time of Disposition: 19:01 Disposition: Discharge to Home or Self Care Condition: Fair Departure Forms: ED Discharge - Pt. Copy, Patient Portal Self Enrollment Referrals: Hugh Lo MD [Primary Care Provider] - 1-2 Weeks Prescriptions: Ipratropium-Albuterol [Combivent Respimat 20-100 Mcg/Act] 2 puff IN Q6HRS #1 aer Budesonide (Inhalation) [Pulmicort] 1 mg IN BID #120 ml Cefuroxime Axetil [Ceftin] 500 mg PO Q12H #10 tablet Home Medications: Ambulatory Orders Albuterol Sulfate 0.083 % IN QID #0 03/16/13 Albuterol Sulfate [Proair Hfa] 108 mcg IN Q4-6H #0 03/16/13 DULoxetine HCL [Cymbalta] 30 mg PO BID #0 03/16/13 Meloxicam 7.5 mg PO DAILY #0 03/16/13 metFORMIN HCL [Glucophage] 500 mg PO DAILY #0 03/16/13 Alprazolam [Xanax] 1 mg PO BID 09/23/16 Amlodipine Besylate 2.5 mg PO DAILY 09/23/16 Aspirin [Aminta Low Dose] 81 mg PO DAILY 09/23/16 Cyanocobalamin [Vitamin B-12] 500 mcg PO DAILY 09/23/16 HYDROcodone 10MG/APAP 325MG [[place] 10325] 1 tab PO Q4HR PRN 09/23/16 Lisinopril 20 mg PO DAILY 09/23/16 Montelukast Sodium 10 mg PO DAILY 09/23/16 Amoxicillin [Amoxil] 1,000 mg PO BID #30 cap 07/31/17 predniSONE 20 mg PO DAILY #7 tab 07/31/17 Budesonide (Inhalation) [Pulmicort] 1 mg IN BID #120 ml 08/16/17 Cefuroxime Axetil [Ceftin] 500 mg PO Q12H #10 tablet 08/16/17 Ipratropium-Albuterol [Combivent Respimat 20-100 Mcg/Act] 2 puff IN Q6HRS #1 aer 08/16/17 Additional Instructions: Continue with all home medications;Follow up with primary Md August 2017 Return to ER as needed
[2017-08-16] MEDS ORDERED: methylPREDNISolone SODIUM SUC 125 MG/2 ML VIAL IV ONE (15:03)
[2017-08-16] MEDS ORDERED: SODIUM CHLORIDE 0.9% 500ML 500 ML IVS ONE (15:03)
[2017-08-16] MEDS ORDERED: cefTRIAXone SODIUM 1 GM in SODIUM CHL 0.9% 50ML MIN-BAG+ 50 ML IVPB ONE (16:51)
[2017-08-16] MEDS ORDERED: LEVALBUTEROL NEBS 1.25 MG/3 ML VIAL NEB ONE (17:38)
[2017-08-16] MEDS ORDERED: cefTRIAXone SODIUM 1 GM VIAL ONE (17:53)
[2017-08-16] MEDS ORDERED: SODIUM CHL 0.9% 50ML MIN-BAG+ 50 ML IVPB ONE (17:53)
[2017-08-16 19:03] VITALS: O2SAT 92
[2017-08-16 19:17] VITALS: BP 137/86; TEMP 99
== END 2017-08-16 19:17 | disposition home or self-care (01) ==
LOC: ER 14:20
DX: J44.9 Chronic obstructive pulmonary disease, unspecified (principal); J45.901 Unspecified asthma with (acute) exacerbation; I10 Essential (primary) hypertension; E11.9 Type 2 diabetes mellitus without complications; E07.9 Disorder of thyroid, unspecified; Z79.82 Long term (current) use of aspirin
CPT/HCPCS: 36415; 71045; 80048; 80076; 81001; 82550; 82553; 83880; 84484; 85025; 85379; 85610; 85730; 94640; J0696; J2930; J7040; J7050; J7614; J7620

== ENCOUNTER 2017-08-21 12:00 | Inpatient (IN) | payer MEDICARE, MEDICAID ==
--- NOTE | 2017-08-21 12:27 | HP ---
SUPERVISING PHYSICIAN: Hugh Lo M.D. CHIEF COMPLAINT: Shortness of breath and coughing for about 1 week. HISTORY OF PRESENT ILLNESS: This is a 72 year-old female patient who has symptoms of an upper respiratory infection about 1 week ago. She actually had an appointment to see me in clinic due to her upper respiratory symptoms and for some reason was unable to make her appointment. She also came to the Emergency Room on 08/16/17 for shortness of breath, coughing and asthma symptoms. She was sent home with a new inhaler and she presented to her primary care physician's office this morning for continued asthma problems as well as some shortness of breath. In Dr. Lo's office, her oxygen saturations were 86, temperature 98.5 with blood pressure 114/80, pulse 90, respiratory rate 20. After being placed on oxygen, her O2 came up to 94%. Multiple breathing treatments were given in the office and she failed to improve. An x-ray was done at [facility] and showed a left lower lobe infiltrate, and I was called for direct admission to the hospital for left lower lobe pneumonia and exacerbation of asthma with low oxygen saturations. PAST MEDICAL HISTORY: 1. Asthma. 2. Hypothyroidism. 3. Cerebrovascular accident. 4. Cervical spine stenosis. 5. Degenerative disc disease. 6. Depression with anxiety. 7. Diabetes mellitus type 2. 8. Obstructive sleep apnea. 9. Pulmonary fibrosis. 10. Osteoporosis. PAST SURGICAL HISTORY: 1. Cholecystectomy. 2. Hysterectomy and bilateral salpingo-oophorectomy with bladder biopsy in 2005. 3. Tonsillectomy. 4. Eye surgery for strabismus. OUTPATIENT MEDICATIONS: Per the EMR and awaiting verification. ALLERGIES: NO KNOWN DRUG ALLERGIES. FAMILY HISTORY: Positive for coronary artery disease, type 2 diabetes, hypertension, breast cancer and rheumatoid arthritis. SOCIAL HISTORY: She is disabled. She is single. She lives with her sister. She denies any tobacco, ETOH or illicit drug use. REVIEW OF SYSTEMS: Positive for fatigue. Negative for chills, fever or weight changes. HEENT: Negative for sinus symptoms, ear pain, vision changes or sore throat. RESPIRATORY: Positive for persistent cough with copious amounts of clear to yellow sputum, shortness of breath and wheezing. CARDIOVASCULAR: Negative for chest pain, palpitations or tachycardia. GASTROINTESTINAL: Negative for constipation, diarrhea, nausea or vomiting. MUSCULOSKELETAL: Negative for arthralgias or myalgias. GENITOURINARY: Negative for hematuria, dysuria, polyuria. INTEGUMENT: Negative for lesions or rashes. NEUROLOGIC: Positive for mild headaches most likely due to coughing and weakness. Negative for seizures. PHYSICAL EXAMINATION: VITAL SIGNS: She is afebrile, heart rate 72, blood pressure 137/86, respiratory rate 22, O2 sat is 92% on 2 liters nasal cannula. GENERAL: This is a 72 year-old female patient who is lying in her hospital bed asleep. She awakens easily. She is in no acute distress. HEENT: Normocephalic and atraumatic. Pupils are equal and reactive. Oropharynx is clear. RESPIRATORY: Expiratory wheezing throughout all lung walsh, somewhat diminished at the bases. She is slightly tachypneic with a respiratory rate 22 to 24 breaths per minute. CARDIOVASCULAR: Regular rate and rhythm. GASTROINTESTINAL: Abdomen is soft, nondistended, non-tender. Bowel sounds are positive. EXTREMITIES: No cyanosis, clubbing or edema. NEUROLOGIC: She is awake, alert and oriented times three. LABORATORY: WBCs 6.7, hemoglobin 12.4, hematocrit 37.6. Electrolytes are basically within normal limits. Glucose 131, serum osmolality 272.7, calcium 8.3, serum total protein 6. Urinalysis is basically within normal limits. RADIOLOGY: Chest x-ray at [facility] shows a small left lower lobe infiltrate. All other labs and films have been reviewed via the EMR. ASSESSMENT: 1. Left lower lobe pneumonia failed outpatient therapy with O2 saturations of 86%. 2. History of asthma with an acute exacerbation. 3. Hypertension. 4. Diabetes mellitus type 2. 5. Obstructive sleep apnea. 6. History of cerebrovascular accident. 7. Depression with severe anxiety. PLAN: We will admit the patient to the hospital. I have initiated the pneumonia protocol and she will be started on azithromycin and Rocephin. I have also given her some steroids an will taper those IV steroids down as tolerated. I have started her on Accu-Cheks with a.c. and h.s. plus Humalog insulin sliding scale. I have given her a PPI for ulcer prophylaxis and Lovenox for DVT prophylaxis. As per Dr. Lo's request, we have started her on Breo and we will start that tomorrow morning. She will have aggressive pulmonary hygiene. I have restarted her home medications, including her scheduled Xanax and I have also given her some p.r.n. Xanax. We will continue to monitor her closely and follow as needed. Dr. Lo is the collaborating physician available for consultation. #[id number] [facility]
[2017-08-21] MEDS: IV SET AND CAP CHANGE INJ INJ SCH (12:30)
[2017-08-21] MEDS ORDERED: ALPRAZolam 0.25 MG TAB PO ONE (12:42)
[2017-08-21] MEDS ORDERED: ALPRAZolam 0.5 MG TAB ONE ×3 (12:52→21:00)
[2017-08-21] MEDS ORDERED: SODIUM CHLORIDE 0.9% (FLUSH) 10 ML SYG IV PRN (12:59)
[2017-08-21] MEDS ORDERED: ALBUTEROL SULFATE 2.5 MG/3 ML VIAL NEB PRN (13:01)
[2017-08-21] MEDS ORDERED: ACETAMINOPHEN 325 MG TAB PO PRN (13:01)
[2017-08-21] MEDS ORDERED: methylPREDNISolone SODIUM SUC 125 MG/2 ML VIAL IV ONE (13:05)
[2017-08-21] MEDS ORDERED: PANTOPRAZOLE SODIUM IV 40 MG VIAL IV SCH ×2 (13:30→18:30)
[2017-08-21] MEDS ORDERED: ENOXAPARIN SODIUM 40 MG/0.4 ML SYG SUBCU SCH (13:30)
[2017-08-21] MEDS: ALBUTEROL SULFATE 2.5 MG/3 ML VIAL NEB SCH ×3 (13:45→20:24)
[2017-08-21] MEDS ORDERED: SODIUM CHL 0.9% 50ML MIN-BAG+ 50 ML IVPB ONE (13:54)
[2017-08-21] MEDS ORDERED: AZITHROMYCIN IV 500 MG VIAL IVPB ONE (13:55)
[2017-08-21] MEDS ORDERED: ceFAZolin SODIUM 1 GM VIAL ONE (13:55)
[2017-08-21] MEDS ORDERED: SODIUM CHLORIDE 0.9% 250ML 250 ML ONE (13:56)
[2017-08-21] MEDS: guaiFENesin ER TAB 600 MG TAB PO SCH ×2 (14:03→20:30)
[2017-08-21] MEDS ORDERED: cefTRIAXone SODIUM 1 GM VIAL ONE (14:52)
[2017-08-21] MEDS: cefTRIAXone SODIUM 1 GM in SODIUM CHL 0.9% 50ML MIN-BAG+ 50 ML IVPB SCH (15:07)
[2017-08-21] MEDS: AZITHROMYCIN IV 500 MG in SODIUM CHLORIDE 0.9% 250ML 250 ML IVPB SCH (15:39)
[2017-08-21] MEDS ORDERED: DEXTROSE 50% 25 GM/50 ML SYG IV PRN (18:09)
[2017-08-21] MEDS ORDERED: GLUCAGON INJ 1 MG VIAL SUBCU PRN (18:09)
[2017-08-21] MEDS ORDERED: ALPRAZolam 0.5 MG TAB PO PRN (18:26)
[2017-08-21] MEDS: ENOXAPARIN SODIUM 40 MG/0.4 ML SYG SUBCU SCH ×2 (18:54→18:58)
[2017-08-21] MEDS ORDERED: DULoxetine HCL 20 MG CAP PO ONE (20:25)
[2017-08-21] MEDS ORDERED: PANTOPRAZOLE SODIUM TAB 40 MG PO ONE (20:26)
[2017-08-21] MEDS ORDERED: methylPREDNISolone SODIUM SUC 125 MG/2 ML VIAL ONE (20:26)
[2017-08-21] MEDS: DULoxetine HCL 30 MG CAP PO SCH (20:29)
[2017-08-21] MEDS: SODIUM CHLORIDE 0.9% (FLUSH) 10 ML SYG IV SCH (20:30)
[2017-08-21] MEDS ORDERED: NON-FORMULARY MEDICATION 1 EA MIS (Alprazolam [Xanax] 1 MG) PO SCH (21:00)
[2017-08-21] MEDS: INSULIN LISPRO 100 UNITS/ML PEN SUBCU SCH (22:17)
[2017-08-22] MEDS: methylPREDNISolone SODIUM SUC 125 MG/2 ML VIAL IV SCH ×3 (00:30→12:02)
[2017-08-22] MEDS: PANTOPRAZOLE SODIUM TAB 40 MG PO SCH (05:56)
--- NOTE | 2017-08-22 06:26 | RAD ---
EXAM: PA and LATERAL CHEST RADIOGRAPHS CLINICAL INDICATION: Pneumonia. COMPARISON: Chest radiographs of the first 2018. FINDINGS: Cardiac size and. Pulmonary vasculature are normal. New subtle bibasilar consolidations. Increased pulmonary markings in the mid and lower lung zones. Suspect new small bilateral pleural effusions. No pneumothorax. Unchanged degenerative disease in both shoulders and in the visualized spine. IMPRESSION: Findings suspicious for new right basilar pulmonary congestion. No superimposed focal pneumonia or pneumothorax. Electronically signed by: Bernardino Hunter MD 08/22/2017 6:24 AM CDT
[2017-08-22] MEDS: INSULIN LISPRO 100 UNITS/ML PEN SUBCU SCH ×4 (08:21→21:20)
[2017-08-22] MEDS: ALBUTEROL SULFATE 2.5 MG/3 ML VIAL NEB SCH ×4 (08:37→20:55)
[2017-08-22] MEDS: NON-FORMULARY MEDICATION 1 EA MIS (Fluticasone Furoate-Vilanterol [Breo Ellipta 100-25 Mcg IN SCH (08:42)
[2017-08-22] MEDS: DULoxetine HCL 30 MG CAP PO SCH (09:00)
[2017-08-22] MEDS: guaiFENesin ER TAB 600 MG TAB PO SCH ×2 (09:37→21:20)
[2017-08-22] MEDS: ALPRAZolam 0.5 MG TAB PO SCH ×2 (09:38→21:21)
[2017-08-22] MEDS: MONTELUKAST 10 MG TAB PO SCH (09:38)
[2017-08-22] MEDS: amLODIPine BESYLATE 5 MG TAB PO SCH (09:38)
[2017-08-22] MEDS: LISINOPRIL 10 MG TAB PO SCH (09:38)
[2017-08-22] MEDS: metFORMIN HCL 500 MG TAB PO SCH (09:38)
[2017-08-22] MEDS: MELOXICAM 7.5 MG TAB PO SCH (09:38)
[2017-08-22] MEDS: ENOXAPARIN SODIUM 40 MG/0.4 ML SYG SUBCU SCH (09:38)
[2017-08-22] MEDS: ASPIRIN EC 81 MG TAB PO SCH (09:38)
[2017-08-22] MEDS: SODIUM CHLORIDE 0.9% (FLUSH) 10 ML SYG IV SCH ×2 (09:51→21:21)
[2017-08-22] MEDS: DULoxetine HCL 20 MG CAP PO SCH ×2 (11:19→21:20)
[2017-08-22] MEDS ORDERED: SODIUM CHL 0.9% 50ML MIN-BAG+ 50 ML IVPB ONE (13:55)
[2017-08-22] MEDS ORDERED: cefTRIAXone SODIUM 1 GM VIAL ONE (13:55)
[2017-08-22] MEDS: KCL 20MEQ/0.45% NS 1,000 ML IVS PRN (14:05)
[2017-08-22] MEDS: cefTRIAXone SODIUM 1 GM in SODIUM CHL 0.9% 50ML MIN-BAG+ 50 ML IVPB SCH (14:06)
[2017-08-22] MEDS ORDERED: SODIUM CHLORIDE 0.9% 250ML 250 ML ONE ×2 (14:35→14:37)
[2017-08-22] MEDS ORDERED: AZITHROMYCIN IV 500 MG VIAL IVPB ONE (14:35)
[2017-08-22] MEDS: AZITHROMYCIN IV 500 MG in SODIUM CHLORIDE 0.9% 250ML 250 ML IVPB SCH (14:42)
--- NOTE | 2017-08-22 15:01 | PN ---
DATE: 08/22/17 SUPERVISING PHYSICIAN: Chance Egan M.D. SUBJECTIVE: The patient is lying in bed. She is asleep. She awakens easily. Complains of some shortness of breath and productive cough. She does feel slightly better than yesterday, but still is very weak. OBJECTIVE: VITAL SIGNS: Temperature 98, heart rate 109, blood pressure 171/95, respiratory rate 18, O2 sat is 97% on room air. RESPIRATORY: Scattered rhonchi throughout all lung walsh. Breath sounds are diminished at the bases. CARDIAC : Regular rate and rhythm. GASTROINTESTINAL: Abdomen is soft, nondistended, non -tender. Bowel sounds are positive. NEUROLOGIC: She is awake, alert and oriented times three. LABORATORY: WBCs are 4.1 with hemoglobin 13.3, hematocrit 40.5. Blood sugars have run between 210 and 247. Sodium 139, potassium 4.5, chloride 106, carbon dioxide 26, BUN 17, creatinine 0.79. Preliminary blood cultures are negative to date. RADIOLOGY: Chest x-ray per radiology interpretation shows a suspicious new right basilar pulmonary congestion. There is no superimposed focal pneumonia or pneumothorax. All other labs and films have been reviewed via the EMR. ASSESSMENT: 1. Bilateral lower lobe pneumonia failed outpatient therapy most likely community acquired. Prior to admission her O2 saturations were 86% at her physician 's office. 2. History of asthma with an acute exacerbation. 3. Hypertension. 4. Diabetes mellitus type 2. 5. Obstructive sleep apnea. 6. History of cerebrovascular accident. 7. Depression with severe anxiety. PLAN: We will continue present supportive care. I am titrating down her IV steroids. She will continue on her antibiotic as previously ordered. Will monitor her cultures. We were unable to obtain a sputum culture but will monitor her clinically. I will hold on lab and x-rays tomorrow. We will continue to encourage good pulmonary hygiene and followup as needed. Dr. Egan is the collaborating physician available for consultation. #[id number] [facility]
[2017-08-22] MEDS ORDERED: methylPREDNISolone SODIUM SUC 40 MG/ML VIAL ONE (19:57)
[2017-08-22] MEDS ORDERED: PANTOPRAZOLE SODIUM IV 40 MG VIAL IV SCH (21:00)
[2017-08-22] MEDS: HYDROcodone 10MG/APAP 325MG 1 EA TAB PO PRN (21:20)
[2017-08-22] MEDS: methylPREDNISolone SODIUM SUC 40 MG/ML VIAL IV SCH (21:25)
[2017-08-23] MEDS: KCL 20MEQ/0.45% NS 1,000 ML IVS PRN (05:34)
[2017-08-23] MEDS: methylPREDNISolone SODIUM SUC 40 MG/ML VIAL IV SCH (05:38)
[2017-08-23] MEDS: PANTOPRAZOLE SODIUM TAB 40 MG PO SCH (06:26)
[2017-08-23] MEDS: INSULIN LISPRO 100 UNITS/ML PEN SUBCU SCH ×4 (07:59→21:07)
[2017-08-23] MEDS: metFORMIN HCL 500 MG TAB PO SCH (08:02)
[2017-08-23] MEDS: NON-FORMULARY MEDICATION 1 EA MIS (Fluticasone Furoate-Vilanterol [Breo Ellipta 100-25 Mcg IN SCH (08:38)
[2017-08-23] MEDS: ALBUTEROL SULFATE 2.5 MG/3 ML VIAL NEB SCH ×4 (08:38→20:15)
[2017-08-23] MEDS: MONTELUKAST 10 MG TAB PO SCH (08:46)
[2017-08-23] MEDS: guaiFENesin ER TAB 600 MG TAB PO SCH ×2 (08:46→21:06)
[2017-08-23] MEDS: DULoxetine HCL 20 MG CAP PO SCH ×2 (08:46→21:06)
[2017-08-23] MEDS: LISINOPRIL 10 MG TAB PO SCH (08:46)
[2017-08-23] MEDS: ASPIRIN EC 81 MG TAB PO SCH (08:46)
[2017-08-23] MEDS: amLODIPine BESYLATE 5 MG TAB PO SCH (08:46)
[2017-08-23] MEDS: ALPRAZolam 0.5 MG TAB PO SCH ×2 (08:46→21:07)
[2017-08-23] MEDS: MELOXICAM 7.5 MG TAB PO SCH (08:46)
[2017-08-23] MEDS: SODIUM CHLORIDE 0.9% (FLUSH) 10 ML SYG IV SCH ×2 (08:47→21:13)
[2017-08-23] MEDS: ENOXAPARIN SODIUM 40 MG/0.4 ML SYG SUBCU SCH (08:47)
[2017-08-23] MEDS ORDERED: amLODIPine BESYLATE 5 MG TAB PO SCH (12:06)
[2017-08-23] MEDS ORDERED: amLODIPine BESYLATE 5 MG TAB PO ONE (12:07)
[2017-08-23] MEDS ORDERED: SODIUM CHL 0.9% 50ML MIN-BAG+ 50 ML IVPB ONE (13:23)
[2017-08-23] MEDS ORDERED: cefTRIAXone SODIUM 1 GM VIAL ONE (13:23)
[2017-08-23] MEDS: cefTRIAXone SODIUM 1 GM in SODIUM CHL 0.9% 50ML MIN-BAG+ 50 ML IVPB SCH (13:25)
--- NOTE | 2017-08-23 13:58 | PN ---
DATE: 08/23/17 SUPERVISING PHYSICIAN: Chance Egan M.D. SUBJECTIVE: The patient is sitting up in the chair in her hospital room. She is eating her lunch. She has no complaints of shortness of breath or nausea or vomiting or diarrhea. She does get short of breath with some exertion and she was concerned about her blood sugars being elevated. I explained to her that her blood sugars were elevated due to her steroids and that those would level out as those are tapered off. OBJECTIVE: VITAL SIGNS: She is afebrile. Heart rate 95, blood pressure 182/79, respiratory rate 18, O2 sat is 93% on room air. RESPIRATORY: Diminished breath sounds throughout but otherwise clear to auscultation. CARDIAC: Regular rate and rhythm. NEUROLOGIC: She is awake, alert and oriented times three. LABORATORY: Her blood sugars have run between 202 and 235. Her preliminary blood cultures show no growth after 24 hours. Sputum culture is pending. All other labs and films have been reviewed via the EMR. ASSESSMENT: 1. Bilateral lower lobe pneumonia failed outpatient therapy most likely community acquired. Prior to admission her O2 saturations were 86% at her physician 's office. 2. History of asthma with an acute exacerbation. 3. Hypertension. 4. Diabetes mellitus type 2. 5. Obstructive sleep apnea. 6. History of cerebrovascular accident. 7. Depression with severe anxiety. PLAN: We will continue present supportive care. Her blood pressures have been somewhat elevated during this admission so I have increased her amlodipine from 2.5 mg daily to 5 mg daily. I have also discontinued her IV steroids and changed her to p.o. prednisone. She will need a prednisone taper and routine lab and x-ray in the morning as well as ordered some frequent ambulation and an ambulation study. There is some question that she is supposed to have a nebulizer machine delivered to her home tomorrow so we need to find out if she needs an albuterol prescription on discharge. We will continue to monitor her cultures closely and follow as needed. Dr. Egan is the collaborating physician available for consultation. [facility][id number] [facility]
[2017-08-23] MEDS ORDERED: SODIUM CHLORIDE 0.9% 250ML 250 ML ONE (14:51)
[2017-08-23] MEDS ORDERED: AZITHROMYCIN IV 500 MG VIAL IVPB ONE (14:52)
[2017-08-23] MEDS: AZITHROMYCIN IV 500 MG in SODIUM CHLORIDE 0.9% 250ML 250 ML IVPB SCH (15:08)
[2017-08-23] MEDS: HYDROcodone 10MG/APAP 325MG 1 EA TAB PO PRN (16:56)
[2017-08-23] MEDS: CEFDINIR 300 MG CAP PO SCH (21:07)
[2017-08-24] MEDS: PANTOPRAZOLE SODIUM TAB 40 MG PO SCH (05:58)
--- NOTE | 2017-08-24 07:37 | RAD ---
EXAM DESCRIPTION: XR CHEST 2 VIEWS CLINICAL HISTORY: Pneumonia COMPARISON: 08/22/2017 TECHNIQUE: PA/lateral FINDINGS: Normal heart size. Tortuosity of the aorta. No pulmonary edema, alveolar consolidation or effusion IMPRESSION: No pulmonary infiltrate identified Electronically signed by: Hugh Hogue MD 08/24/2017 7:36 AM CDT
[2017-08-24] MEDS: INSULIN LISPRO 100 UNITS/ML PEN SUBCU SCH ×2 (08:00→11:44)
[2017-08-24] MEDS: MELOXICAM 7.5 MG TAB PO SCH (08:11)
[2017-08-24] MEDS: metFORMIN HCL 500 MG TAB PO SCH (08:11)
[2017-08-24] MEDS: DULoxetine HCL 20 MG CAP PO SCH (08:11)
[2017-08-24] MEDS: ALPRAZolam 0.5 MG TAB PO SCH (08:12)
[2017-08-24] MEDS: MONTELUKAST 10 MG TAB PO SCH (08:13)
[2017-08-24] MEDS: ENOXAPARIN SODIUM 40 MG/0.4 ML SYG SUBCU SCH (08:13)
[2017-08-24] MEDS: guaiFENesin ER TAB 600 MG TAB PO SCH (08:13)
[2017-08-24] MEDS: CEFDINIR 300 MG CAP PO SCH (08:13)
[2017-08-24] MEDS: LISINOPRIL 10 MG TAB PO SCH (08:13)
[2017-08-24] MEDS: ASPIRIN EC 81 MG TAB PO SCH (08:13)
[2017-08-24] MEDS: SODIUM CHLORIDE 0.9% (FLUSH) 10 ML SYG IV SCH (08:17)
[2017-08-24] MEDS: ALBUTEROL SULFATE 2.5 MG/3 ML VIAL NEB SCH ×2 (08:30→13:13)
[2017-08-24] MEDS: NON-FORMULARY MEDICATION 1 EA MIS (Fluticasone Furoate-Vilanterol [Breo Ellipta 100-25 Mcg IN SCH (08:30)
[2017-08-24] MEDS ORDERED: AZITHROMYCIN 250 MG TAB PO SCH (09:00)
[2017-08-24] MEDS ORDERED: predniSONE 20 MG TAB PO SCH (09:00)
--- NOTE | 2017-08-24 11:31 | DS ---
SUPERVISING PHYSICIAN: Rinku Cardona MD ADMISSION DISCHARGE: 1. Left lower lobe pneumonia with failed outpatient therapy. 2. Hypoxia. 3. Asthma exacerbation. 4. Hypertension. 5. Diabetes mellitus, type 2. 6. Obstructive sleep apnea. 7. History of cerebrovascular accident. 8. Depression with severe anxiety. DISCHARGE DIAGNOSIS: 1. Bibasilar pneumonia with failed outpatient therapy. 2. Hypoxia with improvement. 3. Asthma exacerbation. 4. Hypertension. 5. Diabetes mellitus, type 2. 6. Obstructive sleep apnea. 7. History of cerebrovascular accident. 8. Depression with anxiety. HOSPITAL COURSE: This is a 72-year-old female who was diagnosed with an upper respiratory infection approximately one week prior to admission. She came to the Emergency Room on 08/16/17 with shortness of breath, coughing and asthma. She was sent home with a new inhaler and then went to her primary care physician 's office, Dr. Lo, the morning admission. Her oxygen saturations were in the mid-80s. She was placed on oxygen at the office and then also got some breathing treatments. Due to failure of improvement in office, she was sent for a chest x-ray which revealed a left lower lobe pneumonia. She was directed admitted from the doctor's office to the hospital. In the hospital, she was placed on IV antibiotics with Rocephin as well as azithromycin. She was placed on steroids as well as nebulizer therapies. She demonstrated stepwise improvement over the last 3 days to the point today where she is actually doing quite well. She will be discharged today with p.o. antibiotics as well as a nebulizer machine. She has not used the nebulizer machine in the past, however , due to her asthma and current acute exacerbation of asthma, she will require this at home. I have discussed with her in depth at the bedside. DISCHARGE CONDITION: Fair. DISCHARGE MEDICATIONS: 1. Albuterol nebulizers 2.5 mg every 4 hours. 2. Azithromycin 250 mg daily for the next 3 days. 3. Cefdinir 300 mg p.o. b.i.d. for 10 days. 4. Guaifenesin 600 mg p.o. b.i.d. for 14 days. 5. Prednisone titrating dosing. 6. Her dose of Norvasc is increased from 2.5 mg to 5 [address] Lo in two weeks. [facility][id number] [facility]
[2017-08-24 13:20] VITALS: BP 148/82; TEMP 98.2; O2SAT 95
[2017-08-24] MEDS: IV SET AND CAP CHANGE INJ INJ SCH (13:22)
== END 2017-08-24 13:50 | disposition home health service (06) | DRG 194 ==
LOC: MS 12:00
PROVIDERS: ADMIT Nurse Practitioner Acute Care; ATTEND Nurse Practitioner
DX: J18.9 Pneumonia, unspecified organism (principal); J45.901 Unspecified asthma with (acute) exacerbation; R09.02 Hypoxemia; I10 Essential (primary) hypertension; E11.9 Type 2 diabetes mellitus without complications; G47.33 Obstructive sleep apnea (adult) (pediatric); E03.9 Hypothyroidism, unspecified; M48.02 Spinal stenosis, cervical region; F41.8 Other specified anxiety disorders; J84.10 Pulmonary fibrosis, unspecified; M81.0 Age-related osteoporosis without current pathological fracture; R06.82 Tachypnea, not elsewhere classified; Z86.73 Personal history of transient ischemic attack (TIA), and cerebral infarction without residual deficits

== ENCOUNTER → 2018-03-08 | Outpatient (CLI) | payer MEDICARE, MEDICAID | LOC: GMAM 14:46 | PROVIDERS: ATTEND Family Medicine | DX: E03.9 Hypothyroidism, unspecified (principal) ==

== ENCOUNTER 2018-07-26 11:58 | Emergency (ER) | payer MEDICARE, MEDICAID ==
[2018-07-26] MEDS ORDERED: SODIUM CHLORIDE 0.9% (FLUSH) 10 ML SYG IV PRN (12:47)
[2018-07-26] MEDS ORDERED: methylPREDNISolone SODIUM SUC 125 MG/2 ML VIAL IV ONE (12:48)
[2018-07-26] MEDS ORDERED: IPRATROPIUM/ALBUTEROL 3 ML VIAL NEB ONE ×3 (12:48→14:39)
[2018-07-26] MEDS ORDERED: methylPREDNISolone SODIUM SUC 125 MG/2 ML VIAL IM ONE (13:50)
--- NOTE | 2018-07-26 14:23 | RAD ---
EXAM DESCRIPTION: Chest,1 View CLINICAL HISTORY: 73 years Female, COUGH, SOB COMPARISON: Radiographs of the chest dated 09/03/2017. TECHNIQUE: AP radiograph of the chest was obtained. FINDINGS: Trachea is midline.The cardiomediastinal silhouette is normal in size. The pulmonary vasculature is within normal limits.The lungs are clear with no acute consolidation.No evidence of pleural effusions. IMPRESSION: No acute cardiopulmonary process. Electronically signed by: Shila Pierce MD 07/26/2018 2:20 PM CDT
[2018-07-26] MEDS ORDERED: levoFLOXacin 500 MG TAB PO ONE (14:43)
--- NOTE | 2018-07-26 15:09 | ED.PDOC ---
History of Present Illness - General Chief Complaint: Respiratory Problem Stated Complaint: Pt states coughing, wheezing, and SOB Time Seen by Provider: 07/26/18 12:47 Source: patient Exam Limitations: no limitations - History of Present Illness Initial Comments: PT REPORTS INCREASED SOB AND PRODUCTIVE COUGH FOR THE PAST WEEK. PT HAS HISTORY OF ASTHMA AND TAKES ALBUTEROL NEBS AT HOME WITHOUT RELIEF. Timing/Duration: 1 week Severity: moderate Activities at Onset: none Possible Cause: chronic episodes Improving Factors: immobilization, rest Worsening Factors: movement Associated Symptoms: cough, wheezing Respiratory Risk Factors: no cause identified Allergies/Adverse Reactions: Allergies Chocolate Allergy (Verified 07/26/18 12:19) Tomato Allergy (Verified 07/26/18 12:19) barbeque Allergy (Uncoded 07/26/18 12:19) Home Medications: Ambulatory Orders Albuterol Sulfate [Proair Hfa] 108 mcg IN Q4-6H #0 03/16/13 Meloxicam 7.5 mg PO DAILY #0 03/16/13 metFORMIN HCL [Glucophage] 500 mg PO DAILY #0 03/16/13 Alprazolam [Xanax] 1 mg PO BID 09/23/16 Aspirin [Aminta Low Dose] 81 mg PO DAILY 09/23/16 Cyanocobalamin [Vitamin B-12] 500 mcg PO DAILY 09/23/16 HYDROcodone 10MG/APAP 325MG [[place] 10/325] 1 tab PO Q4HR PRN 09/23/16 Lisinopril 20 mg PO DAILY 09/23/16 Montelukast Sodium 10 mg PO DAILY 09/23/16 DULoxetine HCL [Cymbalta] 20 mg PO BID 08/21/17 Fluticasone Furoate-Vilanterol [Breo Ellipta 100-25 Mcg/INH] 1 inh IN DAILY 08/21/17 Albuterol Sulfate Nebs [Proventil Nebs] 2.5 mg NEB Q4H #2 b 08/24/17 Azithromycin Tab [Zithromax Tab] 250 mg PO Q24H 3 Days #3 tab 08/24/17 Cefdinir [Omnicef] 300 mg PO BID 10 Days #20 cap 08/24/17 amLODIPine BESYLATE [Norvasc] 5 mg PO DAILY #30 tab 08/24/17 guaiFENesin ER TAB [Mucinex Tab] 600 mg PO BID 14 Days #28 tab 08/24/17 predniSONE 40 mg PO DAILY #18 tab 08/24/17 Levofloxacin [Levaquin] 750 mg PO DAILY #5 tablet 07/26/18 Prednisone 50 mg PO DAILY 4 Days #4 tab 07/26/18 Review of Systems - Review of Systems Constitutional: States: chills, fever EENTM: States: nose congestion. Denies: throat pain Respiratory: States: see HPI, cough, short of breath Cardiology: Denies: chest pain, palpitations Gastrointestinal/Abdominal: Denies: diarrhea, nausea, vomiting Genitourinary: Denies: dysuria, frequency Musculoskeletal: Denies: joint pain, joint swelling Skin: Denies: change in color, dryness Neurological: Denies: headache, numbness Endocrine: States: no symptoms reported Hematologic/Lymphatic: States: no symptoms reported Past Medical History (General) - Patient Medical History Hx Seizures: No Hx Stroke: No Hx Asthma: Yes Hx of COPD: No Hx Cardiac Disorders: No Hx Congestive Heart Failure: No Hx Pacemaker: No Hx Hypertension: Yes Hx Thyroid Disease: Yes - Is not taking her thyroid medication Hx Diabetes: Yes Hx Gastroesophageal Reflux: Yes Hx MRSA: No MRSA Source:: Blood Surgical History: tonsillectomy, Hysterectomy, other - Vaccination History Hx Tetanus, Diphtheria Vaccination: Yes Hx Influenza Vaccination: Yes Hx Pneumococcal Vaccination: Yes Immunizations Up to Date: Yes - Social History Hx Tobacco Use: No Hx Alcohol Use: No Hx Substance Use: No Hx Substance Use Treatment: No Hx Depression: No Hx Physical Abuse: No Hx Emotional Abuse: No - Female History Patient is a Female of Child Bearing Age (10 -59 yrs old): No Patient : No Family Medical History - Family History Mother Family History: Unknown Living Status: Hx Cardiac Disease: Yes - parents,sister Hx Family Diabetes: Yes - mom ,sister Hx Family Cancer: Yes - breast-sister Physical Exam - Physical Exam General Appearance: Alert, Obese, Well Hydrated Eyes, Ears, Nose, Throat Exam: normal ENT inspection Neck: full range of motion, normal inspection Respiratory: decreased breath sounds, wheezing Cardiovascular/Chest: regular rate, rhythm, no murmur Gastrointestinal/Abdominal: non tender, soft Extremity: non-tender, normal inspection, no pedal edema Neurologic: alert, normal mood/affect Skin Exam: normal color, warm/dry Progress - Progress Progress: 07/26/18 14:11 PT REPORTS SIGNIFICANT IMPROVEMENT AFTER 2 DUONEBS AND 125MG IM SOLU MEDROL, HOWEVER STATES SHE IS STILL MILDLY SOB. ADDITIONAL DUONEB ORDERED. 07/26/18 15:12 PT REPORTS RESOLUTION OF DYSPNEA AND IS SITTING UP EATING SANDWICH. WHEEZING RESOLVED WITH INCREASED AIR MOVEMENT ON AUSCULTATION. O2 SAT 94% ON RA. - Results/Orders Results/Orders: Laboratory Tests 07/26/18 07/26/18 13:22 13:22 WBC 12.9 H RBC 4.18 L Hgb 13.1 Hct 39.3 MCV 94.0 MCH 31.3 H MCHC 33.2 RDW 13.6 Plt Count 333 MPV 7.7 Absolute Neuts (auto) 9.90 H Absolute Lymphs (auto) 1.60 Absolute Monos (auto) 1.20 H Absolute Eos (auto) 0.20 Absolute Basos (auto) 0.00 Neutrophils % 76.4 Lymphocytes % 12.2 L Monocytes % 9.5 H Eosinophils % 1.5 Basophils % 0.4 Sodium 138 Potassium 4.0 Chloride 102 Carbon Dioxide 25 Anion Gap 15.0 BUN 17 Creatinine 0.76 BUN/Creatinine Ratio 22.4 H Random Glucose 156 H Serum Osmolality 280.4 Calcium 9.2 Total Bilirubin 0.6 AST 15 ALT 17 Alkaline Phosphatase 104 B-Natriuretic Peptide 13.4 Serum Total Protein 7.8 Albumin 4.0 Globulin 3.8 H Albumin/Globulin Ratio 1.1 - EKG/XRAY/CT EKG: Sinus - 98BPM, NL INTERALS, LAD, POOR R WAVE PROGRESSION, no ST T wave changes, Unchanged from - 09/23/16 XRAY: chest - NO ACUTE DISEASE, PER RAD Departure - Departure Clinical Impression: Acute bronchitis, Acute asthma exacerbation Time of Disposition: 15:15 Disposition: Discharge to Home or Self Care Condition: Good Departure Forms: ED Discharge - Pt. Copy, Patient Portal Self Enrollment Instructions: DI for Asthma -- Adult, Acute Bronchitis, Adult (DC) Referrals: Hugh Lo MD [Primary Care Provider] - 1-5 Days Prescriptions: Levofloxacin [Levaquin] 750 mg PO DAILY #5 tablet Prednisone 50 mg PO DAILY 4 Days #4 tab Home Medications: Ambulatory Orders Albuterol Sulfate [Proair Hfa] 108 mcg IN Q4-6H #0 03/16/13 Meloxicam 7.5 mg PO DAILY #0 03/16/13 metFORMIN HCL [Glucophage] 500 mg PO DAILY #0 03/16/13 Alprazolam [Xanax] 1 mg PO BID 09/23/16 Aspirin [Aminta Low Dose] 81 mg PO DAILY 09/23/16 Cyanocobalamin [Vitamin B-12] 500 mcg PO DAILY 09/23/16 HYDROcodone 10MG/APAP 325MG [[place] 10/325] 1 tab PO Q4HR PRN 09/23/16 Lisinopril 20 mg PO DAILY 09/23/16 Montelukast Sodium 10 mg PO DAILY 09/23/16 DULoxetine HCL [Cymbalta] 20 mg PO BID 08/21/17 Fluticasone Furoate-Vilanterol [Breo Ellipta 100-25 Mcg/INH] 1 inh IN DAILY 08/21/17 Albuterol Sulfate Nebs [Proventil Nebs] 2.5 mg NEB Q4H #2 b 08/24/17 Azithromycin Tab [Zithromax Tab] 250 mg PO Q24H 3 Days #3 tab 08/24/17 Cefdinir [Omnicef] 300 mg PO BID 10 Days #20 cap 08/24/17 amLODIPine BESYLATE [Norvasc] 5 mg PO DAILY #30 tab 08/24/17 guaiFENesin ER TAB [Mucinex Tab] 600 mg PO BID 14 Days #28 tab 08/24/17 predniSONE 40 mg PO DAILY #18 tab 08/24/17 Levofloxacin [Levaquin] 750 mg PO DAILY #5 tablet 07/26/18 Prednisone 50 mg PO DAILY 4 Days #4 tab 07/26/18 Critical Care Note - Critical Care Note Total Time (mins): 45
[2018-07-26 15:32] VITALS: BP 106/91; TEMP 99.1; O2SAT 93
== END 2018-07-26 15:32 | disposition home or self-care (01) ==
LOC: ER 11:58
DX: J20.9 Acute bronchitis, unspecified (principal); J45.901 Unspecified asthma with (acute) exacerbation; I10 Essential (primary) hypertension; E07.9 Disorder of thyroid, unspecified; I11.9 Hypertensive heart disease without heart failure; K21.9 Gastro-esophageal reflux disease without esophagitis; Z79.899 Other long term (current) drug therapy; Z79.82 Long term (current) use of aspirin; Z79.84 Long term (current) use of oral hypoglycemic drugs
CPT/HCPCS: 36415; 71045; 80053; 83880; 85025; 87502; 93005; 94640; 94760; J2930; J7620

== ENCOUNTER → 2018-09-20 | Outpatient (CLI) | payer MEDICARE, MEDICAID | LOC: GMAM 17:23 | PROVIDERS: ATTEND Family Medicine | DX: E53.8 Deficiency of other specified B group vitamins (principal); E03.9 Hypothyroidism, unspecified ==

== ENCOUNTER → 2018-12-22 | Outpatient (CLI) | payer MEDICARE, MEDICAID | LOC: YCHH 09:34 | PROVIDERS: ATTEND Family Medicine | DX: E11.9 Type 2 diabetes mellitus without complications (principal); E78.9 Disorder of lipoprotein metabolism, unspecified; D64.9 Anemia, unspecified ==

== ENCOUNTER → 2020-01-17 | Outpatient (CLI) | payer MEDICARE, MEDICAID | LOC: YCHH 09:00 | PROVIDERS: ATTEND Family Medicine | DX: E11.9 Type 2 diabetes mellitus without complications (principal); M17.11 Unilateral primary osteoarthritis, right knee; E03.9 Hypothyroidism, unspecified; E78.5 Hyperlipidemia, unspecified; D64.9 Anemia, unspecified; E53.8 Deficiency of other specified B group vitamins ==

== ENCOUNTER → 2020-01-27 | Outpatient (CLI) | payer MEDICARE, MEDICAID | LOC: YCHH 11:13 | PROVIDERS: ATTEND Family Medicine | DX: R73.9 Hyperglycemia, unspecified (principal) ==

== ENCOUNTER → 2020-02-23 | Outpatient (CLI) | payer MEDICARE, MEDICAID | LOC: YCHH 11:03 | PROVIDERS: ATTEND Family Medicine | DX: E11.9 Type 2 diabetes mellitus without complications (principal); E03.9 Hypothyroidism, unspecified; D64.9 Anemia, unspecified; E78.2 Mixed hyperlipidemia; R79.89 Other specified abnormal findings of blood chemistry ==

== ENCOUNTER → 2020-04-04 | Outpatient (CLI) | payer MEDICARE, MEDICAID | LOC: YCHH 10:44 | PROVIDERS: ATTEND Family Medicine | DX: N39.0 Urinary tract infection, site not specified (principal) ==

== ENCOUNTER 2020-06-02 14:43 | Emergency (ER) | payer MEDICARE, MEDICAID ==
--- NOTE | 2020-06-02 14:59 | ED.PDOC ---
History of Present Illness - General Time Seen by Provider: 06/02/20 14:51 Source: patient, RN notes reviewed, Vital Signs reviewed, EMS notes reviewed, family, RN/MD, EMS Exam Limitations: no limitations - History of Present Illness Initial Comments: Pt is a 75 yo female with PMH of COPD and chronic pain for which she takes hydrocodone who presents to ED by EMS for hip and knee pain after a fall 3 days ago. States she uses a walker at home and 3 days ago she lost her balance and fell onto bilateral flexed knees. Denies hitting her head or LOC. Family was there to help her get up. Pt states she has had bilateral knee and hip pain since the fall. She has been ambulating at home with her walker since the fall. Pt denies CRUZ. neck pain, CP, SOB, fever, abdominal pain or dysuria. Family called EMS today because she has not been as active since the fall. Allergies/Adverse Reactions: Allergies Chocolate Allergy (Verified 06/02/20 15:18) Tomato Allergy (Verified 06/02/20 15:18) barbeque Allergy (Uncoded 07/26/18 12:19) Home Medications: Ambulatory Orders Albuterol Sulfate [Proair Hfa] 108 mcg IN Q4-6H #0 03/16/13 metFORMIN HCL [Glucophage] 500 mg PO DAILY #0 03/16/13 Cyanocobalamin [Vitamin B-12] 500 mcg PO DAILY 09/23/16 Lisinopril 20 mg PO DAILY 09/23/16 Montelukast Sodium 10 mg PO DAILY 09/23/16 DULoxetine HCL [Cymbalta] 20 mg PO BID 08/21/17 Fluticasone Furoate-Vilanterol [Breo Ellipta 100-25 Mcg/INH] 1 inh IN DAILY 08/21/17 amLODIPine BESYLATE [Norvasc] 5 mg PO DAILY #30 tab 08/24/17 guaiFENesin ER TAB [Mucinex Tab] 600 mg PO BID 14 Days #28 tab 08/24/17 ALPRAZolam 1 mg Q8HRS PRN 07/27/19 Diphenhydramine-Acetaminophen [Tylenol Pm Extra Strength 500-25 mg] 1 tab PO BEDTIME PRN 07/27/19 Levothyroxine Sodium 150 mcg PO DAILY 07/27/19 Meloxicam 7.5 mg PO DAILY 07/27/19 Mirabegron [Myrbetriq] 25 mg PO DAILY 07/27/19 Azithromycin Tab [Zithromax Tab] 250 mg PO QD #3 tab 07/31/19 Cefdinir [Omnicef] 300 mg PO BID #14 cap 07/31/19 Review of Systems - Review of Systems Constitutional: Denies: chills, fever EENTM: Denies: blurred vision, throat pain Respiratory: Denies: cough, short of breath Cardiology: Denies: chest pain, edema, palpitations, syncope Gastrointestinal/Abdominal: Denies: abdominal pain, nausea, vomiting Musculoskeletal: States: other - bilateral hip and knee pain Neurological: Denies: headache, numbness, paresthesia All other Systems: Reviewed and Negative Past Medical History (General) - Patient Medical History Hx Seizures: No Hx Stroke: Yes Hx Asthma: Yes Hx of COPD: No Hx Cardiac Disorders: No Hx Congestive Heart Failure: No Hx Pacemaker: No Hx Hypertension: Yes Hx Thyroid Disease: Yes - Is not taking her thyroid medication Hx Diabetes: Yes Hx Gastroesophageal Reflux: Yes Hx MRSA: No MRSA Source:: Blood - Vaccination History Hx Tetanus, Diphtheria Vaccination: Yes Hx Influenza Vaccination: Yes Hx Pneumococcal Vaccination: Yes - Social History Hx Tobacco Use: No Hx Alcohol Use: No Hx Substance Use: No Hx Substance Use Treatment: No Hx Depression: No Hx Physical Abuse: No Hx Emotional Abuse: No - Female History Patient : No Family Medical History - Family History Mother Family History: Unknown Living Status: Hx Cardiac Disease: Yes - parents,sister Hx Family Diabetes: Yes - mom ,sister Hx Family Cancer: Yes - breast-sister Physical Exam - Physical Exam General Appearance: Alert, Comfortable, No apparent distress Eye Exam: bilateral normal - PERRL Ears, Nose, Throat: normal ENT inspection Neck: non-tender, full range of motion, supple, normal inspection Respiratory: chest non-tender, lungs clear, normal breath sounds, no respiratory distress, no accessory muscle use Cardiovascular/Chest: regular rate, rhythm, no murmur Gastrointestinal/Abdominal: non tender, soft, no pulsatile mass Back Exam: normal inspection, no vertebral tenderness Extremity: other - Pt has FROM in all ext. No deformities. TTP diffusely to bilateral hips and knees. Neurologic: no motor/sensory deficits, alert, normal mood/affect Skin Exam: normal color, warm/dry Progress - Progress Progress: 06/02/20 17:02 PT PRESENTS TO ED FOR BILATERAL HIP AND KNEE PAIN AND DECREASED ACTIVITY SINCE A FALL 3 DAYS AGO. IMAGING IS REASSURING AND SHOWS NO SIGN OF FRACTURE OR ICH. LAB AND UA REASSURING. PT IS AMBULATORY IN ed WITH ASSISTANCE. PT FEELS COMFORTABLE GOING HOME AND WILL F/U WITH PCP IN 1-2 DAYS FOR RECHECK. SRP GIVEN. - Results/Orders Results/Orders: EKG- NSR, rate 93, nml intervals, nonspecific T wave abnormality CT BRAIN EXAM: CT head CLINICAL INDICATION: Patient fell COMPARISON: There is no previous study for comparison. TECHNIQUE: CT scan was done using contiguous axial 5 mm sections through the brain. This exam was performed according to our departmental dose-optimization program, which includes automated exposure control, adjustment of the mA and/or kV according to patient size and/or use of iterative reconstruction technique. FINDINGS: There is no midline shift, mass effect, or extraaxial fluid collection. There is no evidence of acute intrac ranial hemorrhage, mass lesion, or cerebral edema. There is minimal diffuse cerebral atrophy. Encephalomalacia is noted involving portions of the left frontal, temporal and parietal lobes in the MCA distribution consistent with old infarct. Mild chronic ischemic changes are noted. The remainder of the brain is unremarkable. Bone window images reveal no evidence of a skull fracture. IMPRESSION: 1. No evidence of an acute intracranial process. 2. Old left MCA infarct. Mild diffuse atrophy and nonspecific chronic ischemic changes. CT C SPINE EXAM: Cervical Spine CLINICAL INDICATION: Trauma, pain COMPARISON: There is no previous study for comparison. TECHNIQUE: CT scan of the cervical spine was done using contiguous axial 3mm sections through the cervical spine with sagittal and coronal reconstructions. This exam was performed according to our departmental dose-optimization program, which includes automated exposure control, adjustment of the mA and/or kV according to patient size and/or use of iterative reconstruction technique. Findings: There is no fracture or subluxation. The prevertebral soft tissues are normal. The bilateral facet joint alignment is normal. There is moderate multilevel degenerative disc disease and bilateral facet joint arthropathy. The osseous structures otherwise appear intact and unremarkable. IMPRESSION: No evidence of acute traumatic injury. CHEST XRAY EXAM: AP CHEST RADIOGRAPH CLINICAL INDICATION: Fall. COMPARISON: Compared to the chest radiograph of July 30, 2019. FINDINGS: Cardiac size and pulmonary vasculature are normal. Lungs are clear. No pleural effusions. No pneumothorax, pneumomediastinum or free peritoneal gas. No hilar or mediastinal lymphadenopathy. No mediastinal widening. Partially visualized degenerative disease shoulders unchanged. Bones are intact on this single view. IMPRESSION: Unchanged normal for age portable AP chest radiograph. PELVIC XRAY EXAM: XR Pelvis, 1 or 2 Views CLINICAL HISTORY: The patient is 75 years old and is Female; fall TECHNIQUE: Single frontal view of the pelvis. COMPARISON: No relevant prior studies available. FINDINGS: Bones/joints: Degenerative changes in the left hip. Bone demineralization. No acute fracture. No dislocation. Soft tissues: Unremarkable. IMPRESSION: No acute findings. KNEE XRAYS EXAM: XR Right Knee, 1 or 2 Views CLINICAL HISTORY: The patient is 75 years old and is Female; fall TECHNIQUE: Two views of the right knee. COMPARISON: No relevant prior studies available. FINDINGS: Bones/joints: Tricompartmental degenerative changes. No effusion. Bone demineralization. No acute fracture. No dislocation. Soft tissues: Unremarkable. IMPRESSION: Tricompartmental degenerative changes. EXAM: XR Left Knee, 1 or 2 Views CLINICAL HISTORY: The patient is 75 years old and is Female; fall TECHNIQUE: Two views of the left knee. COMPARISON: No relevant prior studies available. FINDINGS: Bones/joints: Tricompartmental degenerative changes. No effusion. No acute fracture or dislocation. Diffuse bone demineralization. Soft tissues: Unremarkable. IMPRESSION: Tricompartmental degenerative changes. 06/02/20 14:52 Telemetry .ONCE Sodium Chloride 0.9% (Flush) [Saline Flush Syringe] 10 ml IV PRN PRN Sodium Chloride 0.9% 1000ML [Ns 1000 ml] 1,000 ml IVS .QD EKG Stat 06/03/20 09:00 Pulse Ox Daily Laboratory Results - last 24 hr 06/02/20 06/02/20 06/02/20 15:09 15:09 15:09 WBC 8.1 RBC 4.52 Hgb 13.3 Hct 41.0 MCV 90.7 MCH 29.5 MCHC 32.5 L RDW 13.0 Plt Count 254 MPV 7.9 Absolute Neuts (auto) 5.70 Absolute Lymphs (auto) 1.40 Absolute Monos (auto) 0.60 Absolute Eos (auto) 0.30 Absolute Basos (auto) 0.00 Neutrophils % 70.4 Lymphocytes % 17.7 L Monocytes % 7.6 Eosinophils % 3.7 Basophils % 0.6 PT 9.8 INR < 1.00 PTT (SP) 24.1 Sodium 139 Potassium 4.1 Chloride 98 L Carbon Dioxide 34 H Anion Gap 11.1 L BUN 10 Creatinine 0.77 BUN/Creatinine Ratio 13.0 Random Glucose 123 H Serum Osmolality 277.9 Calcium 9.2 Total Bilirubin 0.7 AST 14 ALT 15 Alkaline Phosphatase 119 Creatine Kinase 26 CK-MB (CK-2) 0.9 CK-MB (CK-2) % Not Reportable Troponin I < 0.02 Serum Total Protein 7.3 Albumin 3.8 Globulin 3.5 Albumin/Globulin Ratio 1.1 Urine Color Urine Appearance Urine pH Ur Specific [place] Urine Protein Urine Glucose (UA) Urine Ketones Urine Blood Urine Nitrite Urine Bilirubin Urine Urobilinogen Ur Leukocyte Esterase Urine RBC Urine WBC Ur Epithelial Cells Urine Bacteria 06/02/20 16:36 WBC RBC Hgb Hct MCV MCH MCHC RDW Plt Count MPV Absolute Neuts (auto) Absolute Lymphs (auto) Absolute Monos (auto) Absolute Eos (auto) Absolute Basos (auto) Neutrophils % Lymphocytes % Monocytes % Eosinophils % Basophils % PT INR PTT (SP) Sodium Potassium Chloride Carbon Dioxide Anion Gap BUN Creatinine BUN/Creatinine Ratio Random Glucose Serum Osmolality Calcium Total Bilirubin AST ALT Alkaline Phosphatase Creatine Kinase CK-MB (CK-2) CK-MB (CK-2) % Troponin I Serum Total Protein Albumin Globulin Albumin/Globulin Ratio Urine Color Yellow Urine Appearance Clear Urine pH 6.0 Ur Specific [place] 1.020 Urine Protein Negative Urine Glucose (UA) Negative Urine Ketones Negative Urine Blood Negative Urine Nitrite Negative Urine Bilirubin Negative Urine Urobilinogen 1.0 Ur Leukocyte Esterase Negative Urine RBC 0 Urine WBC 0 Ur Epithelial Cells 0 Urine Bacteria 0 Departure - Departure Clinical Impression: Fall from ground level, Hip pain, bilateral Contusion, knee Qualifiers: Encounter type: initial encounter Laterality: right Qualified Code(s): S80.01XA - Contusion of right knee, initial encounter Time of Disposition: 17:05 Disposition: Discharge to Home or Self Care Condition: Fair Instructions: Contusion (DC) Diet: resume usual diet Referrals: Hugh Lo MD [Primary Care Provider] - 1-2 Days Home Medications: Ambulatory Orders Albuterol Sulfate [Proair Hfa] 108 mcg IN Q4-6H #0 10/30/13 metFORMIN HCL [Glucophage] 500 mg PO DAILY #0 03/16/13 Cyanocobalamin [Vitamin B-12] 500 mcg PO DAILY 09/23/16 Lisinopril 20 mg PO DAILY 09/23/16 Montelukast Sodium 10 mg PO DAILY 09/23/16 DULoxetine HCL [Cymbalta] 20 mg PO BID 08/21/17 Fluticasone Furoate-Vilanterol [Breo Ellipta 100-25 Mcg/INH] 1 inh IN DAILY 08/21/17 amLODIPine BESYLATE [Norvasc] 5 mg PO DAILY #30 tab 08/24/17 guaiFENesin ER TAB [Mucinex Tab] 600 mg PO BID 14 Days #28 tab 08/24/17 ALPRAZolam 1 mg Q8HRS PRN 07/27/19 Diphenhydramine-Acetaminophen [Tylenol Pm Extra Strength 500-25 mg] 1 tab PO BEDTIME PRN 07/27/19 Levothyroxine Sodium 150 mcg PO DAILY 07/27/19 Meloxicam 7.5 mg PO DAILY 07/27/19 Mirabegron [Myrbetriq] 25 mg PO DAILY 07/27/19 Azithromycin Tab [Zithromax Tab] 250 mg PO QD #3 tab 07/31/19 Cefdinir [Omnicef] 300 mg PO BID #14 cap 07/31/19
--- NOTE | 2020-06-02 16:03 | CT ---
EXAM: CT head CLINICAL INDICATION: Patient fell COMPARISON: There is no previous study for comparison. TECHNIQUE: CT scan was done using contiguous axial 5 mm sections through the brain. This exam was performed according to our departmental dose-optimization program, which includes automated exposure control, adjustment of the mA and/or kV according to patient size and/or use of iterative reconstruction technique. FINDINGS: There is no midline shift, mass effect, or extraaxial fluid collection. There is no evidence of acute intracranial hemorrhage, mass lesion, or cerebral edema. There is minimal diffuse cerebral atrophy. Encephalomalacia is noted involving portions of the left frontal, temporal and parietal lobes in the MCA distribution consistent with old infarct. Mild chronic ischemic changes are noted. The remainder of the brain is unremarkable. Bone window images reveal no evidence of a skull fracture. IMPRESSION: 1. No evidence of an acute intracranial process. 2. Old left MCA infarct. Mild diffuse atrophy and nonspecific chronic ischemic changes. Electronically signed by: Silvio Chen MD 06/02/2020 4:01 PM [facility]
--- NOTE | 2020-06-02 16:04 | CT ---
EXAM: Cervical Spine CLINICAL INDICATION: Trauma, pain COMPARISON: There is no previous study for comparison. TECHNIQUE: CT scan of the cervical spine was done using contiguous axial 3mm sections through the cervical spine with sagittal and coronal reconstructions. This exam was performed according to our departmental dose-optimization program, which includes automated exposure control, adjustment of the mA and/or kV according to patient size and/or use of iterative reconstruction technique. Findings: There is no fracture or subluxation. The prevertebral soft tissues are normal. The bilateral facet joint alignment is normal. There is moderate multilevel degenerative disc disease and bilateral facet joint arthropathy. The osseous structures otherwise appear intact and unremarkable. IMPRESSION: No evidence of acute traumatic injury. Electronically signed by: Silvio Chen MD 06/02/2020 4:02 PM [facility]
--- NOTE | 2020-06-02 16:07 | RAD ---
EXAM: XR Left Knee, 1 or 2 Views CLINICAL HISTORY: The patient is 75 years old and is Female; fall TECHNIQUE: Two views of the left knee. COMPARISON: No relevant prior studies available. FINDINGS: Bones/joints: Tricompartmental degenerative changes. No effusion. No acute fracture or dislocation. Diffuse bone demineralization. Soft tissues: Unremarkable. IMPRESSION: Tricompartmental degenerative changes. Electronically signed by: Darcie Frost MD 06/02/2020 4:05 PM [facility]
--- NOTE | 2020-06-02 16:08 | RAD ---
EXAM: XR Right Knee, 1 or 2 Views CLINICAL HISTORY: The patient is 75 years old and is Female; fall TECHNIQUE: Two views of the right knee. COMPARISON: No relevant prior studies available. FINDINGS: Bones/joints: Tricompartmental degenerative changes. No effusion. Bone demineralization. No acute fracture. No dislocation. Soft tissues: Unremarkable. IMPRESSION: Tricompartmental degenerative changes. Electronically signed by: Darcie Frost MD 06/02/2020 4:07 PM [facility]
[2020-06-02] MEDS: SODIUM CHLORIDE 0.9% 1000ML 1,000 ML IVS PRN (16:10)
--- NOTE | 2020-06-02 16:10 | RAD ---
EXAM: XR Pelvis, 1 or 2 Views CLINICAL HISTORY: The patient is 75 years old and is Female; fall TECHNIQUE: Single frontal view of the pelvis. COMPARISON: No relevant prior studies available. FINDINGS: Bones/joints: Degenerative changes in the left hip. Bone demineralization. No acute fracture. No dislocation. Soft tissues: Unremarkable. IMPRESSION: No acute findings. Electronically signed by: Darcie Frost MD 06/02/2020 4:08 PM [facility]
[2020-06-02] MEDS: SODIUM CHLORIDE 0.9% (FLUSH) 10 ML SYG IV PRN (16:11)
--- NOTE | 2020-06-02 16:21 | RAD ---
EXAM: AP CHEST RADIOGRAPH CLINICAL INDICATION: Fall. COMPARISON: Compared to the chest radiograph of July 30, 2019. FINDINGS: Cardiac size and pulmonary vasculature are normal. Lungs are clear. No pleural effusions. No pneumothorax, pneumomediastinum or free peritoneal gas. No hilar or mediastinal lymphadenopathy. No mediastinal widening. Partially visualized degenerative disease shoulders unchanged. Bones are intact on this single view. IMPRESSION: Unchanged normal for age portable AP chest radiograph. Electronically signed by: Bernardino Hunter MD 06/02/2020 4:19 PM [employer]
[2020-06-02 17:45] VITALS: BP 135/83; TEMP 99; O2SAT 95
== END 2020-06-02 17:35 | disposition home or self-care (01) ==
LOC: ER 14:43
DX: S80.01XA Contusion of right knee, initial encounter (principal); M25.551 Pain in right hip; M25.552 Pain in left hip; M17.0 Bilateral primary osteoarthritis of knee; M16.12 Unilateral primary osteoarthritis, left hip; M50.30 Other cervical disc degeneration, unspecified cervical region; G31.9 Degenerative disease of nervous system, unspecified; G89.29 Other chronic pain; J44.9 Chronic obstructive pulmonary disease, unspecified; E11.9 Type 2 diabetes mellitus without complications; J45.909 Unspecified asthma, uncomplicated; I10 Essential (primary) hypertension; E07.9 Disorder of thyroid, unspecified; K21.9 Gastro-esophageal reflux disease without esophagitis; Z86.73 Personal history of transient ischemic attack (TIA), and cerebral infarction without residual deficits; Z79.899 Other long term (current) drug therapy; Z79.84 Long term (current) use of oral hypoglycemic drugs; Z79.891 Long term (current) use of opiate analgesic; W18.39XA Other fall on same level, initial encounter; Y92.9 Unspecified place or not applicable
CPT/HCPCS: 36415; 70450; 71045; 72125; 72170; 73560; 80053; 81001; 82550; 82553; 84484; 85025; 85610; 85730; 93005; 94760; J7030